=== PATIENT | male | born 1980 | race Caucasian/White ===

== ENCOUNTER 2016-11-02 06:19 | Day surgery (SDC) | payer MEDICAID ==
[2016-11-01 15:25] LABS: BASOPHILS 0.1 % (0.0-2.0); EOSINOPHILS 0.4 % (0-7); HEMATOCRIT 28.7 % (42.0-54.0); HEMOGLOBIN 10.6 g/dL (13.5-17.5); IMMATURE GRANULOCYTES 2.3 % (0-5); LYMPHOCYTES 6.5 % (15-50); MCH 35.1 pg (26.0-34.0); MCHC 36.9 g/dL (31.0-37.0); MEAN PLATELET VOLUME 9.6 fL (7.4-10.4); MONOCYTES 3.3 % (2-11); NEUTROPHILS 87.4 % (40-80); PLATELET COUNT 183 10x3/uL (130-400); RBC 3.02 10x6/uL (4.20-6.10); RDW 15.3 % (11.5-14.5); WBC 12.1 10x3/uL (4.8-10.8)
[2016-11-01 16:20] LABS: ANION GAP 15.4 mmol/L (8-16); CALCIUM 9.1 mg/dL (8.5-10.1); CARBON DIOXIDE 25.4 mmol/L (21.0-32.0); CREATININE - SERUM 4.2 mg/dL (0.6-1.3); POTASSIUM - SERUM 3.8 mmol/L (3.5-5.1)
[~2016-11-02] VITALS: Ht 182.9 cm; Wt 117.9 kg
[~2016-11-02 06:19] MED LIST: ALDACTONE50 MG PO; CARDURA2 MG PO; CATAPRES0.1 MG PO; CELLCEPT500 MG PO; CLARITIN 10 MG10 MG PO; COUMADIN7.5 MG PO; CYCLOPHOSPHAMIDE PO; DEMADEX20 MG PO; HYDROCODON-ACE1 EAC7 PO; K-TAB10 MEQ PO; KLONOPIN1 MG PO; LASIX40 MG PO; LIPITOR80 MG PO; NORVASC10 MG PO; PLAVIX75 MG PO; PREDNISONE10 MG PO; PRILOSEC20 MG PO; SODIUM BICARBO650 MG PO; SYNTHROID200 MC1 PO; TOPROL XL100 MG PO; ULTRAM50 MG PO; XANAX0.5 MG PO; ZOFRAN8 MG PO; ZOLOFT100 MG PO
[2016-11-02 07:27] VITALS: BP 144/97; Ht 182.9 cm; Wt 117.9 kg
[2016-11-02] MEDS ORDERED: ULTRAM50 MG PO (10:38)
--- NOTE | 2016-11-02 11:48 | NUR ---
7995 PT REQUESTED PAIN MEDICATION, TORODOL PULLED, PT THEN DECLINED WHEN I WENT TO THE ROOM AND PT DISCOVERED IT WAS TORODOL AND NOT IV PAIN MEDICATION, STATES THAT IS WHAT I HAVE AT HOME AND IT DOES VERY LITTLE FOR ME AND I CAN WAIT.
--- NOTE | 2016-11-03 13:15 | OP ---
PATIENT NAME: DAYDAY LISA MEDICAL RECORD: [id number] :81 LOCATION:D.OPS ADMISSION DATE: SURGEON: STEVENSON ROGEL MD DATE OF OPERATION: 11/02/2016 REFERRED BY: Dr. Ryan Osborn. PRIMARY CARE PHYSICIAN: Jorgito Gauthier MD of [place]. 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 OPERATION PERFORMED: Creation of a left wrist radiocephalic arteriovenous fistula. SURGEON: Stevenson Rogel MD ANESTHESIA: General with LMA per BUSINESS ANALYSIS SPECIALIST. PREOPERATIVE NOTE: Mr. Lisa is a 36-year-old white male patient with lupus and severe chronic kidney disease, it is believed he will require dialysis within a few months and Dr. Ryan Osborn referred him to me for creation of a dialysis access. His mapping venous study demonstrated small veins and it is thought that he may be a candidate only for a brachiobasilic fistula. He is brought to the operating room at this time with plans to try to create a fistula in the left upper extremity as he is right handed, though I may possibly or will consider placement of a forearm loop graft that the situation allows. With the patient under anesthesia in supine position, he was prepped and draped in sterile manner. The left arm was treated with topical nitroglycerin paste and a Edgar drain used as a proximal venous tourniquet. Examination with high resolution B mode ultrasound demonstrated a satisfactory cephalic and median antebrachial veins in the forearm and at the wrist. The radial artery was a little small, about 3 mm in diameter, but did not appear to be calcified. The brachial artery was large. There is a good median cubital vein, actually two, one to the cephalic vein and one to the basilic. The basilic vein in the upper arm is larger venous drainage, although the cephalic vein in the upper arm was larger than I anticipated. I think that in the future the patient would be a potential suitable candidate for a forearm loop AV graft and also for brachial translocated basilic vein AV fistula and possibly even brachiocephalic. Today, I went ahead with a wrist fistula. I made an incision on the radial aspect of the wrist and exposed the cephalic vein and treated it with topical papaverine. Tributaries were divided between Vicryl ties and small Hemoclips. The radial artery was exposed and it was as expected somewhat small. It was controlled with Silastic loops and treated with topical papaverine. The vein was transected and beveled and flushed with heparinized saline, treated with additional papaverine. The artery was occluded and opened. It was flushed proximally and distally with heparinized saline and a [id number] end-to-side anastomosis was then performed with running 7-0 Prolene and after the suture line was completed that was hemostatic and with release of the occluding loops and clamps, excellent flow was established in the OPERATIVE REPORT [id number] DAYDAY LISA new fistula. The artery had been dilated with coronary artery dilators up to 3 mm in diameter with ease and I believe that the artery is large enough to carry flow to support and maintain this fistula. There was preservation of flow into the hand via the ulnar artery. Flow reversal in the distal radial artery was noted. The wound was irrigated with Ancef and gentamicin solution, infiltrated with 0.25% Marcaine with epinephrine and closed with interrupted inverted 3-0 Vicryl and then running intracuticular 4-0 Monocryl and Dermabond glue. The incision was dressed with Maxorb Ag, Tegaderm and Cavilon skin prep and the patient awakened from his anesthetic and was taken to the recovery room. Blood loss during the operation was insignificant and unreplaced and all sponges, instruments, and needles were accounted for. No specimen was sent for histopathology. Blood loss was unreplaced and trivial. Plan for Mr. Lisa to go home today. He will come back to see me in my office tomorrow or probably next week. He can leave the original operative dressing intact until then. He can wash over with soap and water as it is quite waterproof. He will continue his home medications and was given an additional prescription for tramadol 50 mg #30 tablet, he can take 1 or if needed 2 p.o. q.4 hours p.r.n. pain. He will continue all his other home medications and renal diet at home. TRANSINT:[id number] Voice Confirmation ID: [id number] DOCUMENT ID: [id number] STEVENSON ROGEL MD at 1315 CC: JORGITO GAUTHIER MD and RENATO OSBORN MD [id number] DICTATION DATE: 11/02/16 1052 RETAIL BUSINESS DEVELOPMENT MANAGER: 11/02/16 1652 [facility] 11/02/16 [id number] [place] [address]
== END 2016-11-02 12:35 | disposition home or self-care (01) ==
LOC: D.OPS 06:19 → D.PAN 08:00 → D.OPS 08:00
PROVIDERS: Surgery
DX: M32.14 Glomerular disease in systemic lupus erythematosus (principal); I12.0 Hypertensive chronic kidney disease with stage 5 chronic kidney disease or end stage renal disease; N18.5 Chronic kidney disease, stage 5

== ENCOUNTER 2017-01-01 16:47 | Inpatient (IN) | payer MEDICAID ==
[~2017-01-01] VITALS: Ht 182.9 cm; Wt 112.7 kg
--- NOTE | ~2017-01-01 | DS ---
PATIENT:DAYDAY LISA :82 MEDICAL RECORD: [id number] DISCHARGE SUMMARY ADMISSION DATE: 01/01/17 DISCHARGE DATE: 01/04/17 REASON FOR ADMISSION: 1. Hypercalcemia. 2. Shortness of breath, which has resolved. 3. Chest pain, which has resolved. 4. Nausea and vomiting, which has resolved. HISTORY OF PRESENT ILLNESS: This 36-year-old gentleman with lupus nephritis, followed by Dr. Osborn. He has not been seeing his lupus doctors either. He presented with about 6 days of not feeling well with shortness of breath, dyspnea on exertion, inability to hold down foods, some dyspepsia and loose stools. It was discovered that his calcium was 14.4. He has been ready to go home for the past 2 days, was a little concerned about shortness of breath and was going to perform a VQ scan today; however, indicated he does not have any further dyspnea on exertion and had a negative venous Doppler. His potassium was a little low, but we started Urocit-K 20 mEq 3 times a day and he is going to consume potassium today and have lab work with Dr. Osborn tomorrow. BUN is 37; creatinine 4.8, this is above his baseline of around 3.5; however, he does have bilateral kidney stones. On discharge, he is 138/87, 77 pulse. He is alert and oriented times 3. Normocephalic and atraumatic. Clear nares. Clear throat. No JVD or thyromegaly. He is up and walking in his room. Clear lungs. Chest is regular rhythm. No clubbing, cyanosis or edema. No urticarial rash. H&H was 9.4/26 with a white count of 6400 and platelet count of 157. He is likely going to need erythropoietin. Potassium is 3.2. As I mentioned, creatinine 4.8, CO2 was 22, albumin 2.4, alkaline phosphatase 36. Echocardiogram as noted, CT of the abdomen and pelvis. C. diff cultures are negative as well. Urine culture is still pending, but did have positive guaiac stool and he is on Plavix. DISPOSITION: Discharge to home. MEDICATIONS: New medications are Sensipar 60 mg once a day, Urocit-K 20 mEq 3 times a day and Bactrim-DS 1 a day for 5 days. He is to follow up with Dr. Osborn for which I wrote him a detail of note, renal diet. Stable on discharge, to return for any problems. I did clarify that he has been ready to go home. We did have a positive guaiac, anemia that we have to deal with as well as followup of his lupus nephritis and hypercalcemia workup as his PTH and other labs are still pending. TRANSINT:[id number] Voice Confirmation ID: [id number] DOCUMENT ID: [id number] KATELYNN WILSON MD CC: [id number] DICTATION DATE: 01/04/17815 SOFTWARE DEVELOPMENT ADVISOR: 01/05/17 0051 DIS IN 01/04/17 [facility] [address] [place] [address]
--- NOTE | ~2017-01-01 | EC ---
PATIENT:DAYDAY LISA DATE OF SERVICE: 01/01/17 SEX: M MEDICAL RECORD: [id number] DATE OF : [birth year] LOCATION:D.M2 D.210 AGE OF PATIENT: 36 ADMISSION DATE: 01/01/17 REFERRING PHYSICIAN: INTERPRETING PHYSICIAN: ELIF GELLER MD ECHOCARDIOGRAM REPORT ECHO CHARGES 4 ECHO COMPLETE CLINICAL DIAGNOSIS: SOB/HTN ECHOCARDIOGRAPHIC MEASUREMENTS (adult normal given) AC root (d.<3.7cm) 3.4 LV Septum d (<1.2 cm> 1.5 Valve Excursion 2.5 LV Septum (systole) 2.4 Left Atria (s.<4.0cm> 4.3 LVPW d(<1.2cm) 1.5 RV (d.<2.3cm) 2.9 LVPW (sytole) 2.5 LV diastole(<5.6CM) 6.2 MV E-F(>70mm/sec) LV systole 3.3 LVOT Diameter 2.1 MV exc.(>10mm) Est.ejection fraction (50-75%) Pericardial Effusion N DOPPLER: LVIT A 82.0 E 54.0 LA RVSP 33.0 LVOT 131 AOP1/2T Asc. Ao 187 RVOT 74.0 RA PA 123 AV Gradient Peak 14.0 AV Mean 5.8 AV Area 2.5 MV Gradient Peak 3.1 MV Mean 1.2 MV Area COMMENTS: Motor Pool Clerk: William WILCOXOE Payroll Consultant:1 Dr. Geller TAPE# PACS DATE OF SERVICE: 01/02/2017 Echocardiogram FINDINGS: 1. Left ventricle chamber size is within normal limits. Left ventricular systolic function is normal. Overall ejection fraction estimated at 60%. 2. Left atrium is enlarged at 4.3 cm. Right atrium and right ventricle chamber sizes are as well mildly dilated. 3. Valvular structures have normal structure and motion. ECHOCARDIOGRAM REPORT [id number] DAYDAY LISA 4. Doppler interrogation reveals mild to moderate aortic insufficiency, mild mitral regurgitation, mild tricuspid regurgitation, no other valvular insufficiency or stenosis. Pulmonary systolic pressure is normal estimated at 33 mmHg. 5. No evidence of pericardial effusion or left ventricular thrombus. TRANSINT:[id number] Voice Confirmation ID: [id number] DOCUMENT ID: [id number] ELIF GELLER MD CC: [id number] DICTATION DATE: 01/03/17 1138 INSTRUMENTATION CONTROLS ENGINEER: 01/03/17 1630 ADM IN [facility] [address] [facility], [facility]901
[2017-01-01 17:40] LABS: BASOPHILS 0.1 % (0-2); EOSINOPHILS 0.1 % (0-7); HEMATOCRIT 33.9 % (42.0-54.0); HEMOGLOBIN 12.6 g/dL (13.5-17.5); IMMATURE GRANULOCYTES 0.6 % (0-5); MCH 34.7 pg (26.0-34.0); MCHC 37.2 g/dL (31.0-37.0); MCV 93.4 fL (80.0-100.0); MEAN PLATELET VOLUME 10.3 fL (7.4-10.4); MONOCYTES 2.6 % (2-11); NEUTROPHILS 90.6 % (40-80); RBC 3.63 10x6/uL (4.20-6.10); RDW 13.4 % (11.5-14.5); WBC 9.4 10x3/uL (4.8-10.8)
[2017-01-01 17:41] LABS: PLATELET COUNT 221 10x3/uL (130-400)
[2017-01-01 17:51] LABS: ALBUMIN 3.3 g/dL (3.4-5.0); ANION GAP 18.1 mmol/L (8-16); BILIRUBIN - TOTAL 0.49 mg/dL (0.2-1.3); CARBON DIOXIDE 23.1 mmol/L (21.0-32.0); CREATININE - SERUM 5.4 mg/dL (0.6-1.3); POTASSIUM - SERUM 4.2 mmol/L (3.5-5.1)
[2017-01-01 17:57] LABS: CALCIUM 14.4 mg/dL (8.5-10.1)
[2017-01-01 18:12] LABS: APPEARANCE HAZY (CLEAR); BILIRUBIN NEGATIVE (NEGATIVE); COLOR YELLOW (YELLOW); GLUCOSE NEGATIVE (NEGATIVE); KETONE NEGATIVE (NEGATIVE); LEUKOCYTE ESTERASE NEGATIVE (NEGATIVE); NITRITE NEGATIVE (NEGATIVE); PROTEIN 3+ mg/dL (NEGATIVE); SPECIFIC GRAVITY 1.015 (1.005-1.020); UROBILINOGEN NORMAL (NORMAL)
[2017-01-01 18:17] LABS: BACTERIA MODERATE /hpf (NONE SEEN); EPITHELIAL CELLS 0-5 /hpf (0-5); GRANULAR CAST 0-5 /lpf (NONE SEEN); HYALINE CAST 0-5 /lpf (NONE SEEN); RED CELLS - URINE 0-5 /hpf (0-5); WAXY CAST OCC /lpf (NONE SEEN)
[2017-01-01 18:19] LABS: AMYLASE - SERUM 53 U/L (25-115); LIPASE 154 U/L (73-393)
--- NOTE | 2017-01-01 20:27 | NUR ---
RECIEVED TO ROOM 2104 FROM ER VIA WC. PT A&O. RESPERATIONS EVEN ON ROOM AIR. IV TO RIGHT HAND WITH NS INFUSING AT 100 CC/HR, SITE CLEAN AND DRY. LEFT WRIST AV FISTULA NOTED, RESERVE LEFT ARM SIGNS PLACED ON OUT SIDE OF DOOR AND ABOVE BED. VITALS OBTAINED, PT DENIES PAIN OR NEEDS.
--- NOTE | 2017-01-01 20:29 | NUR ---
RECEIVED CALL FROM CHAD GAMINO APN ENGLISH DRAWER. NEW ORDERS RECEIVED TO ENACT UPON PT'S ARRIVAL. ENTERED INTO CPOE AND NURSE STAN LPN NOTIFIED OF NEW ORDERS.
[2017-01-01] MEDS ORDERED: DEMADEX20 MG PO (20:33)
[2017-01-01] MEDS ORDERED: NASONEX NASAL S17 GM NS (20:41)
[2017-01-01 21:00] VITALS: BP 161/97
--- NOTE | 2017-01-01 22:17 | NUR ---
HS MEDS GIVEN ORDERED. PT DENIES PAIN OR NEEDS AT THIS TIME.
[2017-01-01 23:38] VITALS: BP 201/123; BMI 33.7
[2017-01-02 04:00] VITALS: BP 152/88
[2017-01-02 05:29] LABS: BASOPHILS 0.1 % (0-2); EOSINOPHILS 0.3 % (0-7); HEMATOCRIT 30.6 % (42.0-54.0); HEMOGLOBIN 11.2 g/dL (13.5-17.5); IMMATURE GRANULOCYTES 0.7 % (0-5); LYMPHOCYTES 7.3 % (15-50); MCH 34.8 pg (26.0-34.0); MCHC 36.6 g/dL (31.0-37.0); MEAN PLATELET VOLUME 10.2 fL (7.4-10.4); MONOCYTES 4.7 % (2-11); NEUTROPHILS 86.9 % (40-80); PLATELET COUNT 194 10x3/uL (130-400); RBC 3.22 10x6/uL (4.20-6.10); RDW 13.6 % (11.5-14.5); WBC 10.4 10x3/uL (4.8-10.8)
[2017-01-02 05:46] LABS: ANION GAP 19.9 mmol/L (8-16); CALCIUM 11.9 mg/dL (8.5-10.1); CARBON DIOXIDE 19.7 mmol/L (21.0-32.0); CREATININE - SERUM 5.2 mg/dL (0.6-1.3); POTASSIUM - SERUM 3.6 mmol/L (3.5-5.1)
[2017-01-02 08:00] VITALS: BP 163/91
--- NOTE | 2017-01-02 10:20 | NUR ---
IV PATENT. CALL LIGHT IN REACH. WILL MONITOR NEEDS.
--- NOTE | 2017-01-02 10:32 | HP ---
PATIENT: DAYDAY LISA MEDICAL RECORD: [id number] ACCOUNT: [id number] LOCATION:D. D.2105 : 81 ADMISSION DATE: 01/01/17 HISTORY AND PHYSICAL EXAMINATION REASON FOR ADMISSION: 1. Intractable nausea and vomiting. 2. Acute kidney injury on chronic kidney disease. 3. Intravascular volume depletion. 4. Proteinuria. 5. Hypercalcemia with a calcium of 14.4. HISTORY OF PRESENT ILLNESS: This is a 36-year-old gentleman followed by Dr. Ryan Osborn who presented to the Emergency Room with not feeling well for 6 days with off and on nausea and vomiting. His calcium was 4.4 and albumin 3.3. PAST MEDICAL HISTORY: 1. CKD due to lupus. 2. Hypercalcemia. 3. Incomplete database as we are obtaining his medications from home. PAST SURGICAL HISTORY: Renal biopsy. ALLERGIES: NSAIDS. SOCIAL HISTORY: No tobacco, alcohol or illicit drugs. FAMILY HISTORY: Noncontributory for lupus nephritis in his mother and father. He is unaware of heart disease or malignancy. PHYSICAL EXAMINATION: VITAL SIGNS: He is 165/86, 71 pulse, 97.8 temperature. GENERAL: Alert and oriented times 3. HEENT: Normocephalic and atraumatic. Clear nares. Clear throat. NECK: No JVD or thyromegaly. CHEST: Regular rhythm. LUNGS: Grossly clear. ABDOMEN: Nontender in all 4 quadrants. Negative Babinski. SKIN: No urticarial rash. LABORATORY DATA: H&H is 12.6/33 with a white count of 9400. Sodium of 138, BUN 43, creatinine 5.4, calcium 14.4. Specific gravity of his urine is 1.015, 5-10 white blood cells, moderate bacteria. ASSESSMENT AND PLAN: 1. Acute kidney injury with hypercalcemia. We will determine his medications. Begin normal saline, increase the rate and consider IV Lasix. We will start Sensipar if his nausea and vomiting improves. 2. Lupus nephritis. He is on medication that will need to obtain from the office for nephrotic syndrome. 3. Deep venous thrombosis risk. We will need to place on Lovenox. I have asked him to ambulate. 4. Hypercalcemia. We will determine the etiology. He may be taking vitamin D at home oral and even calcium supplements or phosphorus. We will follow his lab work. HISTORY AND PHYSICAL [id number] DAYDAY LISA 5. Incomplete database as we need his medications. 6. Hypertension. PLAN: Please see orders. TRANSINT:[id number] Voice Confirmation ID: [id number] DOCUMENT ID: [id number] KATELYNN WILSON MD at 1032 CC: [id number] DICTATION DATE: 01/01/171912 FIELD HAND: 01/01/178 ADM IN [facility] [address] [id number]
[2017-01-02 11:02] LABS: AMYLASE - SERUM 48 U/L (25-115); CKMB 0.4 U/L (0.0-3.6); CREATINE KINASE 18 UL (21-232); LIPASE 257 U/L (73-393); TROPONIN-I 0.033 ng/mL (0.000-0.060)
[2017-01-02 11:45] VITALS: BP 193/109
--- NOTE | 2017-01-02 13:36 | NUR ---
URINE SPECIMEN CLLECTED AND TAKEN TO LAB FOR CULTURE. WILL MONITOR.
--- NOTE | 2017-01-02 15:12 | NUR ---
LEAVING FOR CT BY W/C.
--- NOTE | 2017-01-02 19:49 | NUR ---
ASSESSMENT COMPLETE, A&O, IN BED RESTING, IV TO RIGHT HAND WITH NS AT 100 CC/HR. SITE CLEAN AND DRY. PT DENIES PAIN OR NEEDS, BED LOW, CL IN REACH.
--- NOTE | 2017-01-02 21:15 | NUR ---
HS MEDS GIVEN, ZOFRAN 4 MG GIVEN FOR C/O NAUSEA.
[2017-01-02 21:30] VITALS: BP 147/89
[2017-01-03 00:55] VITALS: BP 135/70
--- NOTE | 2017-01-03 04:36 | NUR ---
CALLED TO ROOM, PT ASKING TO TAKE A SHOWER. IV DISCONNECTED AND COVERED.
[2017-01-03 05:40] LABS: BASOPHILS 0.2 % (0-2); EOSINOPHILS 0.2 % (0-7); HEMATOCRIT 29.3 % (42.0-54.0); HEMOGLOBIN 10.4 g/dL (13.5-17.5); IMMATURE GRANULOCYTES 1.1 % (0-5); LYMPHOCYTES 5.6 % (15-50); MCH 34.1 pg (26.0-34.0); MCHC 35.5 g/dL (31.0-37.0); MCV 96.1 fL (80.0-100.0); MEAN PLATELET VOLUME 10.7 fL (7.4-10.4); MONOCYTES 3.4 % (2-11); NEUTROPHILS 89.5 % (40-80); PLATELET COUNT 180 10x3/uL (130-400); RBC 3.05 10x6/uL (4.20-6.10); RDW 13.4 % (11.5-14.5)
[2017-01-03 05:43] LABS: WBC 6.1 10x3/uL (4.8-10.8)
[2017-01-03 05:55] VITALS: BP 151/93
[2017-01-03 06:03] LABS: ALBUMIN 2.7 g/dL (3.4-5.0); ANION GAP 11.7 mmol/L (8-16); BILIRUBIN - TOTAL 0.4 mg/dL (0.2-1.3); CALCIUM 10.1 mg/dL (8.5-10.1); CARBON DIOXIDE 18.5 mmol/L (21.0-32.0); CREATININE - SERUM 4.7 mg/dL (0.6-1.3); MAGNESIUM - SERUM 1.4 mg/dL (1.8-2.4); PHOSPHOROUS 4.7 mg/dL (2.5-4.9); POTASSIUM - SERUM 3.2 mmol/L (3.5-5.1); PROTEIN - SERUM 5.5 g/dL (6.4-8.2)
--- NOTE | 2017-01-03 07:23 | NUR ---
AM ROUNDS- PT IN BED, DENIES ANY NEEDS AT THIS TIME. BED LOW AND LOCKED, BEDSIDE RAILS X2, CALL LIGHT IN REACH, NAD NOTED, WILL CONTINUE TO MONITOR.
[2017-01-03 08:21] VITALS: BP 149/83
[2017-01-03 10:47] VITALS: Ht 182.9 cm; Wt 112.7 kg
[2017-01-03 11:46] VITALS: BP 149/92
--- NOTE | 2017-01-03 13:31 | NUR ---
PT IN BED, WITH EYES CLOSED, NAD NOTED, CALL LIGHT IN REACH, NAD NOTED, WILL CONTIUE TO MONITOR.
[2017-01-03 16:00] VITALS: BP 152/89; BP 90/50
[2017-01-03 20:16] VITALS: BP 135/85
[2017-01-04 00:15] VITALS: BP 138/87
--- NOTE | 2017-01-04 01:03 | NUR ---
NURSE ROUNDS 01/03/17 21:45 - PT LYING IN BED, AWAKE, ALERT, ORIENTED, VISITORS IN ROOM. PT STATED HE HAS HAD TRANSIENT NAUSEA AND REQUESTED ZOFRAN, HOWEVER, IV INFILTRATED IMMEDIATELY UPON BEGINNING TO PUSH. IV REMOVED WITH CATH TIP INTACT. WILL RESITE. PT STATES HE IS A VERY DIFFICULT IV STICK, AND HAS ORDERS FOR A CVL. CONTINUE TO MONITOR CLOSELY.
--- NOTE | 2017-01-04 02:32 | NUR ---
VEDA NICOLE RESITED PTS IV TO INNER RIGHT FOREARM.
[2017-01-04 02:39] LABS: BASOPHILS 0.2 % (0-2); EOSINOPHILS 0.6 % (0-7); HEMOGLOBIN 9.4 g/dL (13.5-17.5); IMMATURE GRANULOCYTES 1.4 % (0-5); LYMPHOCYTES 7.5 % (15-50); MCH 34.7 pg (26.0-34.0); MCHC 36.2 g/dL (31.0-37.0); MCV 95.9 fL (80.0-100.0); MEAN PLATELET VOLUME 10.3 fL (7.4-10.4); MONOCYTES 4.5 % (2-11); NEUTROPHILS 85.8 % (40-80); PLATELET COUNT 157 10x3/uL (130-400); RBC 2.71 10x6/uL (4.20-6.10); RDW 13.6 % (11.5-14.5); WBC 6.4 10x3/uL (4.8-10.8)
[2017-01-04 02:53] LABS: ALBUMIN 2.4 g/dL (3.4-5.0); ANION GAP 14.1 mmol/L (8-16); BILIRUBIN - TOTAL 0.24 mg/dL (0.2-1.3); CALCIUM 9.3 mg/dL (8.5-10.1); CARBON DIOXIDE 22.1 mmol/L (21.0-32.0); CREATININE - SERUM 4.8 mg/dL (0.6-1.3); POTASSIUM - SERUM 3.2 mmol/L (3.5-5.1); PROTEIN - SERUM 4.9 g/dL (6.4-8.2)
[2017-01-04 05:15] VITALS: BP 143/83
--- NOTE | 2017-01-04 07:48 | NUR ---
AM ROUNDING- RECEIVED REPORT FROM GENERAL ROAD PRODUCTION MANAGER NURSE YANIQUE. PT IS CURRENTLY LAYING IN BED ON RIGHT SIDE WITH EYES CLOSED RESTING. RESERVE LEFT ARM FOR AVF (PER REPORT DOES NOT CURRENTLY WORK). ON ROOM AIR. NO MONITOR. IV SEEN TO RIGHT FOREARM THAT IS CURRENTLY SALINE LOCKED. NO NEED AT CURRENT TIME. WILL CONTINUE TO MONITOR AND CONTINUE WITH PLAN OF CARE.
[2017-01-04 07:57] VITALS: BP 158/99
[2017-01-04] MEDS ORDERED: BACTRIM DS TABL1 TAB PO (08:10)
[2017-01-04] MEDS ORDERED: SENSIPAR30 MG PO (08:11)
[2017-01-04] MEDS ORDERED: UROCIT-K10 MEQ PO (08:12)
--- NOTE | 2017-01-04 09:25 | NUR ---
Patient Name: DAYDAY LISA Admission Status: ER Accout number: [id number] Admission Date: 01-01-2017 : 1980 Admission Diagnosis: Attending: DOONVAN Current LOS: 3 Anticipated DC Date: 01-04-2017 Planned Disposition: Home Primary Insurance: MEDICAID [place] Discharge Planning Comments: * Is the patient Alert and Oriented? Yes 0 * How many steps to enter\exit or inside your home? NONE 0 * PCP DR. DEL RIO, [place] 0 OR - ED [facility]ALLO * Pharmacy [facility] IN [place] 0 * Preadmission Environment Home with Family 0 * ADLs Independent 0 * Equipment Walker 0 * Other Equipment NO MEDICAL EQUIPMENT PROVIDER PREFERENCE 0 * List name and contact numbers for known caregivers / representatives who currently or will assist patient after discharge: JAMILAH LISA, SPOUSE, 0 * Community resources currently utilized None 0 * Please name any agencies selected above. NONE 0 * Additional services required to return to the preadmission environment? No 0 * Can the patient safely return to the preadmission environment? Yes 0 * Has this patient been hospitalized within the prior 30 days at any hospital? No 0 CM MET WITH PT IN ROOM TO DISCUSS DISCHARGE PLANNING AND NEEDS. PT REPORTS LIVING AT HOME INDEPENDENTLY WITH SPOUSE. PT HAS WALKER THAT HE DOES NOT USE AND NO MEDICAL EQUIPMENT PROVIDER PREFERENCE. PT HAS NO OUTSIDE SERVICES ASSISTING IN THE HOME. CM DISCUSSED AVAILABILITY OF HOME HEALTH, REHAB SERVICES AND MEDICAL EQUIPMENT. PT DENIES DISCHARGE NEEDS, REPORTS HIS WILL PICK HIM UP FOR DISCHARGE HOME TODAY. Sound Engineering Technician: Leroy Liz
[2017-01-04] MEDS ORDERED: PROTONIX40 MG PO (09:29)
--- NOTE | 2017-01-04 11:22 | NUR ---
PT ADVISED HIS PHARMACY HAS CHANGED TO [facility]. NEW DISCHARGE MEDICATIONS CALLED TO [facility]. SPOKE WITH BETZY/PHARMACIST.
--- NOTE | 2017-01-04 11:52 | NUR ---
D/C INSTRUCTIONS EXPLAINED TO PT. D/C PAPERWORK SIGNED BY PT AND PLACED IN CHART. PER PT REQUEST IV IS BEING LEFT IN TO RIGHT FOREARM (WITH DR. WILSON APPROVAL) BECAUSE PT IS GOING TO DIALYSIS CENTER TOMORROW AND WANTS TO LEAVE IT IN FOR THEM TO DRAW BLOOD OUT OF. AWAITING PTS TO TAKE HIM HOME. WILL D/C PT WHEN GETS HERE. WILL CONTINUE TO MONITOR.
--- NOTE | 2017-01-04 13:13 | NUR ---
1244- PT D/C VIA WHEELCHAIR.
== END 2017-01-04 13:13 | disposition home or self-care (01) | DRG 641 ==
LOC: D.ER 16:47 → D.M2 19:28
PROVIDERS: Emergency Medicine; Nurse Practitioner Acute Care; ADMIT Internal Medicine Nephrology
DX: E83.52 Hypercalcemia (principal); N18.4 Chronic kidney disease, stage 4 (severe); N17.9 Acute kidney failure, unspecified; M32.14 Glomerular disease in systemic lupus erythematosus; I12.9 Hypertensive chronic kidney disease with stage 1 through stage 4 chronic kidney disease, or unspecified chronic kidney disease; E86.9 Volume depletion, unspecified; D64.9 Anemia, unspecified

== ENCOUNTER 2017-02-04 05:59 | Day surgery (SDC) | payer MEDICAID ==
[2017-02-03 15:26] LABS: BASOPHILS 0.1 % (0-2); EOSINOPHILS 0.3 % (0-7); HEMATOCRIT 30.6 % (42.0-54.0); HEMOGLOBIN 10.7 g/dL (13.5-17.5); IMMATURE GRANULOCYTES 1.2 % (0-5); LYMPHOCYTES 4.3 % (15-50); MCH 34.5 pg (26.0-34.0); MCV 98.7 fL (80.0-100.0); MEAN PLATELET VOLUME 9.7 fL (7.4-10.4); MONOCYTES 2.2 % (2-11); NEUTROPHILS 91.9 % (40-80); PLATELET COUNT 141 10x3/uL (130-400); RDW 14.5 % (11.5-14.5); WBC 9.9 10x3/uL (4.8-10.8)
[2017-02-03 15:32] LABS: APTT 26.6 SECONDS (22.8-39.4); INR 0.99 (0.85-1.17); PROTIME 12.9 SECONDS (11.6-15.0)
[2017-02-03 15:34] LABS: ANION GAP 17.4 mmol/L (8-16); CALCIUM 9.8 mg/dL (8.5-10.1); CARBON DIOXIDE 20.8 mmol/L (21.0-32.0); CREATININE - SERUM 3.8 mg/dL (0.6-1.3); POTASSIUM - SERUM 5.2 mmol/L (3.5-5.1)
[~2017-02-04] VITALS: Ht 182.9 cm; Wt 113.4 kg
[~2017-02-04 05:59] MED LIST changes: +AMOXICILLIN500 M1 PO; +BACTRIM DS TABL1 TAB PO; +NASONEX NASAL S17 GM NS; +NORCO 7.5/325 T1 TA1 PO; +PROTONIX40 MG PO; +SENSIPAR30 MG PO; +UROCIT-K10 MEQ PO
[2017-02-04 07:21] VITALS: BP 178/91; Ht 182.9 cm; Wt 113.4 kg
[2017-02-04] MEDS ORDERED: HYDROCODON-ACE1 EAC7 PO (11:37)
--- NOTE | 2017-02-04 15:38 | NUR ---
2018--PT COMPLAINS OF PAIN, RATES PAIN 01/24. HYDROCODONE 5/325MG GIVEN PO FOR PAIN. LEEANN NICOLE 1519--IV DC'D, PT UP TO DRESS. LEEANN NICOLE 9120--DISCHARGE INSTRUCTIONS GIVEN, PT VERBALIZES UNDERSTANDING. PT OFF UNIT VIA WC. LEEANN NICOLE
--- NOTE | 2017-02-04 15:46 | NUR ---
1215--IV DC'D, PT UP TO DRESS AT THIS TIME. LEEANN NICOLE 1230--DISCHARGE INSTRUCTIONS GIVEN, PT VERBALIZES UNDERSTANDING. PT OFF UNIT VIA WC. LEEANN NICOLE
--- NOTE | 2017-02-08 11:09 | OP ---
PATIENT NAME: DAYDAY LISA MEDICAL RECORD: [id number] :82 LOCATION:IRVING ADMISSION DATE: SURGEON: STEVENSON ROGEL MD OPERATION DATE: 02/04/17 DATE OF OPERATION: 02/04/2017 PREOPERATIVE DIAGNOSIS: Chronic kidney disease stage V and systemic lupus erythematosus with renal involvement. POSTOPERATIVE DIAGNOSIS: Chronic kidney disease stage V and systemic lupus erythematosus with renal involvement. OPERATION PERFORMED: Implantation of a left forearm loop PTFE graft between the medial brachial artery and the slightly more lateral median cubital vein, which drains essentially completely to the basilic vein. The graft is a 6 mm diameter straight standard wall thickness [place] Propaten PTFE. SURGEON: Stevenson Rgoel MD ANESTHESIA: Regional nerve block plus general endotracheal anesthesia per REGLA and Dr. Durand. PREOPERATIVE NOTE: Mr. Lisa is a 36-year-old white male patient with lupus and near end-stage renal disease. He needs to begin dialysis fairly soon. He had a left wrist radiocephalic AV fistula established several months ago and it functioned for a couple of months and then recently thrombosed. Hopefully, that fistula has provided some development of the proximal veins. Under anesthesia, the patient was placed in supine position, prepped, draped in sterile manner. I used a Silver Plume drain as a proximal venous tourniquet and applied nitropaste to the skin of the arm and forearm. I examined him with ultrasound and noted the brachial artery and median cubital vein to the excellent for use for forearm PTFE loop. The median cubital vein did not drain at all into the cephalic vein in the upper arm, but appears to drain 100% into the basilic cyst. So, I thought that doing a loop graft at this point was the best option as he really could not have a brachial cephalic fistula. The brachial artery bifurcated fairly proximally and the subsequent arterial anastomosis was made immediately proximal to that bifurcation. I made a transverse incision over the antecubital space or just below it and exposed the median cubital vein and the brachial artery and its bifurcation. The vessels were controlled with Silastic loops. I made a counter incision or reopened a portion of the prior wrist AV fistula incision for the counterincision and placed a 6 mm PTFE Propaten graft in a subcutaneous tunnel looping around the forearm and kept the grafts close to the skin as possible. The artery was opened for a distance for about 8 mm and the PTFE graft was shortened and beveled and then anastomosed end-to-side to the artery with running 6-0 Prolene after the artery was flushed proximally and distally with heparinized saline. With completion of the anastomosis, the suture line was hemostatic. It was treated with Evicel and some fibrillar hemostatic material utilized initially. The graft was then flushed again with heparinized saline and clamped and the vein treated repeatedly with topical papaverine was occluded with Silastic loops and a venotomy made and the graft shortened and beveled and about a 12-mm long end of graft to side of vein anastomosis was carried out with OPERATIVE REPORT [id number] MARIA LDAYDAY running 6-0 Prolene. With completion of the anastomosis and after approximately 60 seconds following application of Evicel, the occluding loops and clamps were released and excellent flow developed immediately in the new AV graft. The wounds were irrigated with Ancef/gentamicin solution and closed without the use of drain approximating the subcutaneous tissues with interrupted inverted 3-0 Vicryl and the skin with running intracuticular 4-0 Monocryl and Dermabond glue. The wounds were dressed with Maxorb Ag, Tegaderm and Cavilon skin prep. The patient will be able to go home from the outpatient department today. He was given a prescription for 20 Vista 5/325 tablets. He can take 1 every 4 hours p.r.n. for pain. He is encouraged to elevate his arm over the next several days to help reduce postoperative edema and an appointment scheduled for him see me in my office next week. He is to continue all of the same home medications and diet and resume activities as tolerated. He may wear his sling to support his arm for the first 24 hours or so or until the motor function returns in his arm as the block wears off. Otherwise, he will resume activities as I said and he is to shower and wash over the waterproof plastic dressings with soap and water daily. Blood loss was insignificant and replaced. All sponges, instruments and needles were accounted for. No drain was used and no surgical specimen was submitted for histopathology. TRANSINT:[id number] Voice Confirmation ID: [id number] DOCUMENT ID: [id number] STEVENSON ROGEL MD at 1109 CC: RENATO OLIVEIRA MD [id number] DICTATION DATE: 02/04/17 1153 GEOPHYSICAL SUPPORT SPECIALIST: 02/04/171909 [facility] 02/04/17 [facility] [address] [place] [address]
== END 2017-02-04 15:30 | disposition home or self-care (01) ==
LOC: D.OPS 05:59 → D.PAN 08:00 → D.OPS 15:30
PROVIDERS: Surgery
DX: N18.5 Chronic kidney disease, stage 5 (principal); M32.14 Glomerular disease in systemic lupus erythematosus; Z01.812 Encounter for preprocedural laboratory examination

== ENCOUNTER 2017-05-06 14:37 | Emergency (ER) | payer MEDICAID ==
[2017-02-04 07:21] VITALS: BMI 34.0
[2017-05-06 15:04] LABS: BASOPHILS 0.2 % (0-2); EOSINOPHILS 1.2 % (0-7); HEMATOCRIT 30.2 % (42.0-54.0); HEMOGLOBIN 11.2 g/dL (13.5-17.5); IMMATURE GRANULOCYTES 1.1 % (0-5); LYMPHOCYTES 3.6 % (15-50); MCH 35.6 pg (26.0-34.0); MCHC 37.1 g/dL (31.0-37.0); MCV 95.9 fL (80.0-100.0); MEAN PLATELET VOLUME 9.6 fL (7.4-10.4); MONOCYTES 6.1 % (2-11); NEUTROPHILS 87.8 % (40-80); RBC 3.15 10x6/uL (4.20-6.10); RDW 14.3 % (11.5-14.5); WBC 8.1 10x3/uL (4.8-10.8)
[2017-05-06 15:21] LABS: ALBUMIN 2.8 g/dL (3.4-5.0); ANION GAP 18.5 mmol/L (8-16); BILIRUBIN - TOTAL 0.6 mg/dL (0.2-1.3); CALCIUM 8.9 mg/dL (8.5-10.1); CREATININE - SERUM 5.4 mg/dL (0.6-1.3); POTASSIUM - SERUM 4.5 mmol/L (3.5-5.1); PROTEIN - SERUM 6.3 g/dL (6.4-8.2)
[2017-05-06 15:28] LABS: PLATELET COUNT 111 10x3/uL (130-400)
[2017-05-06 17:01] LABS: COLOR YELLOW (YELLOW)
[2017-05-06 17:02] LABS: APPEARANCE CLEAR (CLEAR); BILIRUBIN NEGATIVE (NEGATIVE); GLUCOSE NEGATIVE (NEGATIVE); KETONE NEGATIVE (NEGATIVE); NITRITE NEGATIVE (NEGATIVE); PROTEIN 1+ mg/dL (NEGATIVE); SPECIFIC GRAVITY 1.015 (1.005-1.020); UROBILINOGEN NORMAL (NORMAL)
== END 2017-05-06 17:42 | disposition home or self-care (01) ==
LOC: D.ER 14:37
PROVIDERS: Family Medicine
DX: E86.0 Dehydration (principal); R11.10 Vomiting, unspecified; N20.1 Calculus of ureter; I10 Essential (primary) hypertension; M32.9 Systemic lupus erythematosus, unspecified

== ENCOUNTER 2018-03-17 11:44 | Emergency (ER) | payer MEDICARE ==
[~2018-03-17] VITALS: Ht 182.9 cm; Wt 100.0 kg
[2018-03-17 11:48] VITALS: Ht 182.9 cm; Wt 100.0 kg
[2018-03-17] MEDS ORDERED: NEXIUM40 MG PO (11:53)
[2018-03-17] MEDS ORDERED: ASPIRIN EC81 M1 PO (11:53)
[2018-03-17] MEDS ORDERED: PHENERGAN25 M1 PO (11:53)
[2018-03-17 12:14] LABS: BASOPHILS 0.2 % (0-2); EOSINOPHILS 1.1 % (0-7); HEMATOCRIT 40.3 % (42.0-54.0); HEMOGLOBIN 14.3 g/dL (13.5-17.5); IMMATURE GRANULOCYTES 0.4 % (0-5); LYMPHOCYTES 10.2 % (15-50); MCH 32.9 pg (26.0-34.0); MCHC 35.5 g/dL (31.0-37.0); MCV 92.6 fL (80.0-100.0); MEAN PLATELET VOLUME 9.8 fL (7.4-10.4); MONOCYTES 2.5 % (2-11); NEUTROPHILS 85.6 % (40-80); RBC 4.35 10x6/uL (4.20-6.10); RDW 13.5 % (11.5-14.5); WBC 13.9 10x3/uL (4.8-10.8)
[2018-03-17 12:15] LABS: PLATELET COUNT 204 10x3/uL (130-400)
[2018-03-17 12:30] LABS: ALBUMIN 3.9 g/dL (3.4-5.0); ANION GAP 18.1 mmol/L (8-16); BILIRUBIN - TOTAL 0.38 mg/dL (0.2-1.3); CALCIUM 9.5 mg/dL (8.5-10.1); CARBON DIOXIDE 26.4 mmol/L (21.0-32.0); CREATININE - SERUM 7.4 mg/dL (0.6-1.3); POTASSIUM - SERUM 4.5 mmol/L (3.5-5.1); PROTEIN - SERUM 7.1 g/dL (6.4-8.2)
[2018-03-17 12:43] LABS: APPEARANCE CLEAR (CLEAR); BACTERIA FEW /hpf (NONE SEEN); BILIRUBIN NEGATIVE (NEGATIVE); COLOR YELLOW (YELLOW); EPITHELIAL CELLS 0-5 /hpf (0-5); GLUCOSE NEGATIVE (NEGATIVE); KETONE NEGATIVE (NEGATIVE); NITRITE NEGATIVE (NEGATIVE); PROTEIN 3+ mg/dL (NEGATIVE); UROBILINOGEN NORMAL (NORMAL); WHITE CELLS - URINE 0-5 /hpf (0-5)
[2018-03-17] MEDS ORDERED: HYDROCODON-ACE1 EAC7 PO (14:15)
[2018-03-17] MEDS ORDERED: FLOMAX0.4 MG PO (14:15)
[2018-03-17 14:43] VITALS: BP 141/90
== END 2018-03-17 15:13 | disposition home or self-care (01) ==
LOC: D.ER 11:44
PROVIDERS: Family Medicine
DX: N20.1 Calculus of ureter (principal); Z86.73 Personal history of transient ischemic attack (TIA), and cerebral infarction without residual deficits; G40.909 Epilepsy, unspecified, not intractable, without status epilepticus; I12.9 Hypertensive chronic kidney disease with stage 1 through stage 4 chronic kidney disease, or unspecified chronic kidney disease; N18.4 Chronic kidney disease, stage 4 (severe); Z99.2 Dependence on renal dialysis

== ENCOUNTER 2018-04-25 07:52 | Day surgery (SDC) | payer MEDICARE ==
[~2018-04-25] VITALS: Ht 182.9 cm; Wt 102.3 kg
--- NOTE | ~2018-04-25 | OP ---
PATIENT NAME: DAYDAY LISA MEDICAL RECORD: [id number] :82 LOCATION:D.OPS ADMISSION DATE: SURGEON: INDIA BARAHONA MD DATE OF OPERATION: 04/25/2018 PREOPERATIVE DIAGNOSES: 1. Malfunctioning arteriovenous graft fistula of the left upper extremity. 2. End-stage renal disease without chronic access for hemodialysis. 3. Functioning left arm arteriovenous fistula. POSTOPERATIVE DIAGNOSES: 1. Malfunctioning arteriovenous graft fistula of the left upper extremity. 2. End-stage renal disease without chronic access for hemodialysis. 3. Functioning left arm arteriovenous fistula. 4. Inability to recanalize the patient's left upper extremity arteriovenous fistulas. 5. Graft tissue that needed to be debrided in order to allow for placement of a new arteriovenous graft fistula. 6. Need for ligation of the functioning arteriovenous fistula, so that there would not be two arteriovenous fistulas functioning in the same upper extremity. PROCEDURES: 1. Placement of left upper extremity looped 8 mm ringed arteriovenous graft fistula from the brachial artery down the forearm and then back up all the way to the proximal brachial vein. 2. Ligation of the existing arteriovenous fistula of the left upper extremity. 3. Debridement of the existing graft material in the left upper extremity. SURGEON: India Barahona MD PROVIDER CONTRACTING CONSULTANT: None. BLOOD LOSS: Please see the anesthesia sheet. DRAINS: x1 (10-Estonian round fully fluted drain). The risks, possible complications and alternatives to the procedure were explained to the patient. He elects to proceed. The discussion specifically included, but was not limited to, bleeding requiring emergency reoperation, infection, need for additional dialysis access procedures. This is a former patient of Dr. Mack's. The patient has chosen to have another vascular surgeon attend his dialysis access needs. He is currently being dialyzed through a tunneled dialysis catheter. The patient had a thrill in the left upper extremity and there was an elevated area where the thrill was most easily felt. OPERATIVE COURSE: The patient was conveyed to the operating room electively on 04/25/2018. General anesthesia was induced by anesthesia staff. The left upper extremity was sterilely prepped and draped. It was abducted at 90 degrees to the patient's chart. I interrogated the left upper extremity with the hand-held ultrasound. I reviewed Dr. Mack's operative notes as well. It appeared that there were OPERATIVE REPORT [id number] DAYDAY LISA probably two looped AV graft fistulas. One appeared to be deeper than the other. I incised over some of the graft material, which was located transversely on the volar surface of the forearm. I dissected out the this graft material and it was encircled with a vessel loop. This appeared to be a 6 millimeter piece of PTFE. I then dissected medially over the area of the ulnar nerve. There was a plexus of veins that were contributing to an ongoing thrill that was present due to this arteriovenous fistula. I incised using a curvilinear-type incision and incised over this plexus of veins. I then began to tie off the plexus of veins with a suture ligature of 3-0 Vicryls. At no time was there any apparent nerve injury to the ulnar nerve. I had to oversew the bulged area primarily with [id number] 3-0 Vicryl sutures in order to obliterate the arteriovenous fistula. I noted no persistence of this fistula. There was some graft material, which was then making difficult to tunnel a graft and for this reason, it was necessary to excise this portion of the graft. Before excising it, I wanted to see if we can actually restore flow through this PTFE graft. I advanced a #4 Shravan catheter and attempted to perform a catheter thrombectomy. This was not fruitful. This approach was abandoned. I oversewed the lateral aspect of the graft with a 2-0 Prolene. I then excised the graft medial to this. I then continued my incision over the radial artery distally on the volar surface of the forearm and the wrist. I dissected down to the radial artery and it was diminutive and I identified it was not going to be suitable for an arteriovenous graft fistula. The patient on ultrasound did have a generous left brachial artery. An axial incision was accomplished over the brachial artery at the cubital fossa. I dissected down to the brachial artery. Some side branches were ligated doubly and divided between ligatures. The brachial artery was encircled with vessel loops proximally and distally. An incision was accomplished in the axilla and out on to the proximal medial left arm. I dissected down to the brachial vein, which was encircled with vessel loops. I then took some of the reinforcing rings off an 8 mm piece of PTFE graft. I sutured this graft in a side to end fashion from the brachial artery to the graft with running 6-0 Prolene suture. I then flushed out through the graft, which demonstrated good inflow. I tunneled the graft on the volar surface of the forearm from this cubital incision out on to the distal forearm and I tunneled this back laterally on to the forearm. Some of the reinforcing rings at the bend points in the graft. I then firmly tunneled this graft back to the incision in the axilla. I had removed some more of the reinforcing rings except at the bend at the elbow in the cubital fossa. An end-to-side graft to venous anastomosis was then accomplished after a longitudinal venotomy was performed. I then flushed out through the graft. There was an excellent thrill. Doppler signal could be heard in the radial artery and in the ulnar arteries at the wrist. Meticulous hemostasis was achieved with electrocautery. A 10-Estonian round drain was placed in the axillary incision along with a topical anesthetic power. The drain was sutured to skin with 2-0 nylons. All skin incisions were closed with OPERATIVE REPORT [id number] DAYDAY LISA interrupted 3-0 Vicryls for the deep dermis as well as running intracuticular 3-0 Vicryl for the skin. Sterile dressings were applied. The patient was then conveyed to post-anesthesia care unit where he was in stable condition. It was already evident that he was going to have some significant bruising from this operative procedure. There was an excellent thrill within the graft. No evidence of a radial or ulnar nerve injury. There was an excellent radial motor function at the wrist as well as sensory function on the dorsal surface of the webspace between the thumb and the index finger. There was excellent ulnar motor function as well as sensory function. TRANSINT:[id number] Voice Confirmation ID: [id number] DOCUMENT ID: [id number] INDIA BARAHONA MD at 1008 CC: KATELYNN WILSON MD [id number] DICTATION DATE: 04/25/182053 STEEL SASH ERECTOR: 04/26/18 0022 [facility] 04/26/18 [facility] [address] [place] [address]
[~2018-04-25 07:52] MED LIST changes: +ASPIRIN EC81 M1 PO; +FLOMAX0.4 MG PO; +NEXIUM40 MG PO; +PHENERGAN25 M1 PO
[2018-04-25 08:10] LABS: BASOPHILS 0.3 % (0-2); HEMATOCRIT 39.1 % (42.0-54.0); HEMOGLOBIN 13.7 g/dL (13.5-17.5); IMMATURE GRANULOCYTES 0.4 % (0-5); LYMPHOCYTES 5.3 % (15-50); MCH 32.7 pg (26.0-34.0); MCV 93.3 fL (80.0-100.0); MEAN PLATELET VOLUME 10.3 fL (7.4-10.4); MONOCYTES 8.2 % (2-11); NEUTROPHILS 84.8 % (40-80); PLATELET COUNT 192 10x3/uL (130-400); RBC 4.19 10x6/uL (4.20-6.10); RDW 13.6 % (11.5-14.5); WBC 11.5 10x3/uL (4.8-10.8)
[2018-04-25 08:19] LABS: ANION GAP 19.4 mmol/L (8-16); CALCIUM 9.2 mg/dL (8.5-10.1); CARBON DIOXIDE 25.6 mmol/L (21.0-32.0); CREATININE - SERUM 5.8 mg/dL (0.6-1.3)
[2018-04-25 08:35] LABS: APTT 28.7 SECONDS (22.8-39.4); INR 1.07 (0.85-1.17); PROTIME 13.5 SECONDS (11.6-15.0)
[2018-04-25] MEDS ORDERED: NORCO 10-325 TA1 TAB PO (09:28)
[2018-04-25] MEDS ORDERED: PREDNISONE10 MG PO (09:30)
[2018-04-25 09:41] VITALS: BP 151/84; BMI 30.6
[2018-04-25 17:55] VITALS: BP 150/83; BMI 30.6
[2018-04-25 20:11] VITALS: Ht 182.9 cm; Wt 102.3 kg
[2018-04-25 20:29] VITALS: BP 145/93
[2018-04-26 01:10] VITALS: BP 166/95
[2018-04-26 05:11] LABS: BASOPHILS 0.2 % (0-2); EOSINOPHILS 0.8 % (0-7); HEMATOCRIT 38.2 % (42.0-54.0); HEMOGLOBIN 13.1 g/dL (13.5-17.5); IMMATURE GRANULOCYTES 0.5 % (0-5); LYMPHOCYTES 5.5 % (15-50); MCH 32.5 pg (26.0-34.0); MCHC 34.3 g/dL (31.0-37.0); MCV 94.8 fL (80.0-100.0); MEAN PLATELET VOLUME 10.3 fL (7.4-10.4); PLATELET COUNT 172 10x3/uL (130-400); RBC 4.03 10x6/uL (4.20-6.10); RDW 13.6 % (11.5-14.5); WBC 13.1 10x3/uL (4.8-10.8)
[2018-04-26 05:36] LABS: ANION GAP 18.8 mmol/L (8-16); CALCIUM 8.9 mg/dL (8.5-10.1); CARBON DIOXIDE 21.5 mmol/L (21.0-32.0); POTASSIUM - SERUM 4.3 mmol/L (3.5-5.1)
[2018-04-26 05:50] LABS: PHOSPHOROUS 9.2 mg/dL (2.5-4.9)
[2018-04-26 06:10] VITALS: BP 172/89
[2018-04-26 06:18] VITALS: BP 179/106
[2018-04-26] MEDS ORDERED: NORCO 10-325 TA1 TAB PO (11:06)
== END 2018-04-26 16:24 | disposition home or self-care (01) ==
LOC: D.OPS 07:52 → D.M2 16:10 → D.OPS 04-26 16:24
PROVIDERS: Anesthesiology; Internal Medicine Nephrology
DX: T82.590A Other mechanical complication of surgically created arteriovenous fistula, initial encounter (principal); N18.6 End stage renal disease; Z99.2 Dependence on renal dialysis; Z01.812 Encounter for preprocedural laboratory examination

== ENCOUNTER 2018-08-29 13:13 | Observation (INO) | payer MEDICARE ==
[~2018-08-29] VITALS: Ht 182.9 cm; Wt 106.6 kg
[~2018-08-29 13:13] MED LIST changes: +NORCO 10-325 TA1 TAB PO
[2018-08-29 13:53] VITALS: BP 121/75; BMI 31.9
[2018-08-29 15:19] LABS: BASOPHILS 0.2 % (0-2); EOSINOPHILS 1.8 % (0-7); HEMATOCRIT 38.6 % (42.0-54.0); HEMOGLOBIN 13.2 g/dL (13.5-17.5); IMMATURE GRANULOCYTES 0.1 % (0-5); LYMPHOCYTES 12.7 % (15-50); MCH 31.4 pg (26.0-34.0); MCHC 34.2 g/dL (31.0-37.0); MCV 91.9 fL (80.0-100.0); MONOCYTES 8.5 % (2-11); NEUTROPHILS 76.7 % (40-80); PLATELET COUNT 176 10x3/uL (130-400); RDW 13.8 % (11.5-14.5); WBC 8.1 10x3/uL (4.8-10.8)
[2018-08-29 15:28] LABS: CALCIUM 8.6 mg/dL (8.5-10.1); CARBON DIOXIDE 23.8 mmol/L (21.0-32.0); CREATININE - SERUM 6.9 mg/dL (0.6-1.3); POTASSIUM - SERUM 3.8 mmol/L (3.5-5.1)
[2018-08-29 16:07] VITALS: Ht 182.9 cm; Wt 106.6 kg
--- NOTE | 2018-08-29 19:20 | NUR ---
INTRODUCED SELF TO PATIENT, PATIENT HAD FRIEND AT BEDSIDE. PATIENT WATCHING TV AND EATING PIZZA. RESP EVEN AND UNLABORED. NO S/SX OF PAIN AT THIS TIME. BED IN LOWEST POSITION, CALL LIGHT IN REACH.
[2018-08-29 20:00] VITALS: BP 150/76
[2018-08-30 04:00] VITALS: BP 105/69
--- NOTE | 2018-08-30 04:35 | NUR ---
ASSUMING CARE OF PT - RECIEVED REPORT OF COREY MORGAN. PT RESTING IN BED WITH EYES CLOSED. RR EVEN AND UL, NO S/S OF DISTRESS. VSS. WCTM AND FOLLOW POC. CL IN REACH, SR UP X2,BED IN LOWEST POSITION. NPO STATUS MAINTAINED.
[2018-08-30 05:41] LABS: BASOPHILS 0.4 % (0-2); EOSINOPHILS 2.4 % (0-7); HEMATOCRIT 39.1 % (42.0-54.0); HEMOGLOBIN 13.2 g/dL (13.5-17.5); IMMATURE GRANULOCYTES 0.4 % (0-5); LYMPHOCYTES 14.1 % (15-50); MCH 31.2 pg (26.0-34.0); MCHC 33.8 g/dL (31.0-37.0); MCV 92.4 fL (80.0-100.0); MEAN PLATELET VOLUME 11.2 fL (7.4-10.4); MONOCYTES 8.6 % (2-11); NEUTROPHILS 74.1 % (40-80); PLATELET COUNT 179 10x3/uL (130-400); RBC 4.23 10x6/uL (4.20-6.10); RDW 13.9 % (11.5-14.5); WBC 7.8 10x3/uL (4.8-10.8)
[2018-08-30 06:16] LABS: ANION GAP 21.9 mmol/L (8-16); CALCIUM 8.6 mg/dL (8.5-10.1); CARBON DIOXIDE 21.9 mmol/L (21.0-32.0); CREATININE - SERUM 7.4 mg/dL (0.6-1.3); POTASSIUM - SERUM 3.8 mmol/L (3.5-5.1)
--- NOTE | 2018-08-30 06:48 | NUR ---
RECIEVED CALL FROM OR AT 0610 TO PRE-OP PT. WAS TOLD BY OFF-GOING NURSE COREY MORGAN THAT PT DOES NOT HAVE IV BECAUSE "SURGERY IS SUPPOSED TO DO IT." MEDICATIONS DRAWN UP READY TO ADMINSTER, BUT COULD NOT GET IV ACCESS, X2 STICKS. WILL HAND OFF TO ONCOMING NURSE AND NOTIFY SURGERY.
--- NOTE | 2018-08-30 07:13 | NUR ---
NOTIFIED SURGERY ABOUT MEDS ALREADY BRINGING DRAWN UP AND THEY SAID TO LEAVE TRANFER MEDS LABELED WITH PT. LABELED SYRINGES AND LEFT MEDS AT BEDSIDE AND REPORTED TO COREY HEADLEY. WILL COMPLETE PRE-OP LIST PER COREY HEADLEY TO BEST OF MY ABILITY I RECIEVED PT AT 0430 THIS MORNING FROM COREY MORGAN.
--- NOTE | 2018-08-30 07:40 | NUR ---
0720-TO OR VIA BED.
--- NOTE | 2018-08-30 09:57 | NUR ---
0987-RETURNS FROM RECOVERY ROOM WITH SALINE LOCK PIV TO RIGHT AC. AT BEDSIDE. TWO SMALL DRESSINGS SEEN TO LEFT FA. + BRUIT AND THRILL. EATING BREAKFAST, DENIES NEEDS AT THIS TIME.
--- NOTE | 2018-08-30 10:16 | NUR ---
ROCKY TAB[facility] APN IN TO SEE PATIENT. INFORMED THEM THAT DIALYSIS WILL BE IN ABOUT THREE HOURS.
--- NOTE | 2018-08-30 10:41 | NUR ---
LAYING ON RIGHT SIDE RESTING. AROUSES EASILY. DENIES NEEDS. AT BEDSIDE.
[2018-08-30 11:52] VITALS: BP 138/72
--- NOTE | 2018-08-30 12:31 | NUR ---
STATES THAT HE IS NAUSEATED. NO ZOFRAN ON EMAR. PAGE INTO ROCKY [facility]OR APN FOR SOME.
--- NOTE | 2018-08-30 13:00 | MORECARE ---
CASE MANAGEMENT DISCHARGE SUMMARY PATIENT: DAYDAY LISA UNIT: [id number] ADM DATE: 08/29/18 AGE: 38 : [birth year] SEX: M ROOM/BED: D.2138 AUTHOR: HERMELINDA CHE PHYSICIAN: REFERRING PHYSICIAN: KOLBY HERNADEZ MD DATE OF SERVICE: 08/30/18 Discharge Plan Patient Name: DAYDAY LISA Facility: [facility]:[place] : 1980 Planned Disposition: Anticipated Discharge Date: Discharge Date: Expected LOS: Initial Reviewer: [id number] Initial Review Date: 08/29/2018 Generated: 08/30/18 2:00 pm Coverage Notice Reviewer: [id number] - Chelsie Tellez Notice Issued Date-Time: 08/30/2018 12:42 Notice Type: Medicare Outpatient Observation Notice Notice Delivered To: Patient Relationship to Patient: Self Weight Tester Name: Delivery Method: HAND - Hand Delivered Magnolia Days: Prior Verbal Notification: Recipient Understood Notice: Yes Recipient Signature: Yes Med Rec Note Co-signed by Attending: Coverage Notice Comment: MCKENNA DELIVERED AND DISCUSSED WITH PATIENT AND HIS , JAMILAH, AFTER VERBAL CONSENT OBTAINED. PATIENT HAD JUST RECEIVED SOME IV MEDICATION AND WAS UNABLE TO KEEP HEAD ERECT AND REQUESTED THAT HIS SIGN THE PAPERS. Patient Name: DAYDAY LISA Page [phone] at 1300 All edits/amendments must be made on the electronic document DICTATION DATE: 08/30/18 1300 INVESTMENT OFFICER: MICHELE 08/30/18 1300 RPT#: [id number] DC DATE: STATUS: ADM IN [facility] [address] [place] [address] END OF REPORT
--- NOTE | 2018-08-30 13:47 | NUR ---
TO DIALYSIS VIA BED.
--- NOTE | 2018-08-30 16:25 | NUR ---
STILL OFF THE FLOOR AT THIS ITME.
--- NOTE | 2018-08-30 16:49 | NUR ---
RETURNS FROM DIALYSIS, HAS SOME SLIGHT NAUSEA.
--- NOTE | 2018-08-30 17:39 | NUR ---
CALLED TO ROOM PER PATIENT HE IS STILL VERY NAUSEATED. PHENERGAN GIVEN. THERE ARE TWO DIALYSIS NEEDLES LAYING ON THE FLOOR NEXT TO BED. PATIENT STATES THAT HE FOUND THESE IN HIS BED POST DIALYSIS AND DROPPED THEM ONTO THE FLOOR. I ASKED INGRID BUCKNER RN UNIT MANAGER TO COME SEE THEM THEY LAID. PLACED IN BIO HAZARD BAG AFTER SHE SAW THEM AND PLACED THEM IN HER OFFICE.
--- NOTE | 2018-08-30 18:15 | NUR ---
PATIENT IS RESTING AT THIS TIME, APPEARS NAUSEA FREE. AT BEDSIDE. DISCHARGE PAPERWORK IS DONE, JUST WAITING ON PAIIENT TO FEEL BETTER FOR DISCHARGE.
--- NOTE | 2018-08-30 18:45 | NUR ---
CALLED TO ROOM FOR SALINE LOCK REMOVAL. REMOVED WITH CATH TIP INTACT. STATES THAT HE IS FEELING SOME BETTER.
--- NOTE | 2018-09-01 07:52 | MORECARE ---
CASE MANAGEMENT DISCHARGE SUMMARY PATIENT: DAYDAY LISA UNIT: [id number] ADM DATE: 08/29/18 AGE: 38 : [birth year] SEX: M ROOM/BED: D.213 AUTHOR: HERMELINDA CHE PHYSICIAN: REFERRING PHYSICIAN: KOLBY HERNADEZ MD DATE OF SERVICE: 09/01/18 Discharge Plan Patient Name: DAYDAY LISA Facility: [facility]:[place] : 1980 Planned Disposition: Home Anticipated Discharge Date: 08/30/18 Discharge Date: 08/30/2018 Expected LOS: 1 Initial Reviewer: [id number] Initial Review Date: 08/29/2018 Generated: 09/01/18 8:52 am Coverage Notice Reviewer: [id number] Mason Tellez Notice Issued Date-Time: 08/30/2018 12:42 Notice Type: Medicare Outpatient Observation Notice Notice Delivered To: Patient Relationship to Patient: Self Computational Chemist Name: Delivery Method: HAND - Hand Delivered Magnolia Days: Prior Verbal Notification: Recipient Understood Notice: Yes Recipient Signature: Yes Med Rec Note Co-signed by Attending: Coverage Notice Comment: MCKENNA DELIVERED AND DISCUSSED WITH PATIENT AND HIS , JAMILAH, AFTER VERBAL CONSENT OBTAINED. PATIENT HAD JUST RECEIVED SOME IV MEDICATION AND WAS UNABLE TO KEEP HEAD ERECT AND REQUESTED THAT HIS SIGN THE PAPERS. Last DP export: 08/30/18 12:00 p Patient Name: DAYDAY LISA Page [phone] at 0752 All edits/amendments must be made on the electronic document DICTATION DATE: 09/01/18 075 CURRICULUM CONSULTANT: MICHELE 09/01/18 0751 RPT#: [id number] DC DATE:08/30/18 STATUS: DIS IN [facility] [address] [place] [address] END OF REPORT
--- NOTE | 2018-09-14 09:41 | OP ---
PATIENT NAME: DAYDAY LISA MEDICAL RECORD: [id number] :[birth year] LOCATION:D.M2 D.2138 ADMISSION DATE:08/29/18 SURGEON: TONI SALAZAR MD DATE OF OPERATION: 08/30/2018 PREOPERATIVE DIAGNOSES: 1. Vascular wire embedded and left upper extremity fistula. 2. End-stage renal disease. POSTOPERATIVE DIAGNOSES: 1. Vascular wire embedded and left upper extremity fistula. 2. End-stage renal disease. PROCEDURE: 1. Removal of vascular wire and left upper extremity fistula. 2. Fistulogram with fluoroscopic interpretation. 3. Angioplasty with 4 x 40 millimeter angioplasty balloon. SURGEON: Toni Salazar MD REPORT OF PROCEDURE: The patient's left upper extremity was prepped and draped in sterile fashion. The patient had a suture in place on the left arm with a small amount of uncoiling wire present. Using fluoroscopy, we could see that the wire was imbedded in the tissue and appeared to be knotted up inside the vascular structure. We made a small cut down over top of this after we had infused a total of 5 mL of 1% lidocaine with epinephrine into the surrounding tissues. As we pulled the wire, the wire kept trying to break. Eventually the wire broke off at its entrance into the vessel. Using pressure, we stopped the flow of the fistula and made a small incision in the graft and was able to dig out the excess piece of wire material. Using fluoroscopic guidance, we were able to see that it was completely removed. We then sutured the longitudinal incision in the graft using running 7-0 Prolenes. This discontinued any bleeding from the incision site. We then performed a fistulogram by inserting a 22-gauge butterfly needle into the most distal bend of the graft. At this point, it showed there was not good flow through the vessel, it was more pulsatile with no evident thrill present. The flow appeared to be sluggish even though there did not appear to be any distinct sign of the clot present. There was a very small efferent venous access, which appeared to be the main contributor to the sluggish flow. Decision was made to angioplasty to this area. We inserted a micropuncture device followed by 5 sheath. Through this sheath, we were able to insert a 40 x 4 angioplasty balloon. We were able to dilate up this portion of the vessel all the way up to where we had performed our fistulotomy. At this point, we repeated the fistulogram and it showed there was good flow through the vessel, which had greatly improved and the area of stenosed vessel was markedly dilated. Again, there was no evidence of any clot present in the vessel. The patient had a palpable thrill at this point. We then removed and the catheter and the Glidewire and this was oversewn with a 5-0 Monocryl, which discontinued any bleeding. The skin incision was then closed with a running subcutaneous 5-0 Monocryl and the two areas were dressed appropriately. COMPLICATIONS: None. CONDITION: Stable. OPERATIVE REPORT [id number] DAYDAY LISA ANESTHESIA: Local MAC. BLOOD LOSS: 100 mL. TRANSINT:[id number] Voice Confirmation ID: [id number] DOCUMENT ID: [id number] TONI SALAZAR MD at 0941 CC: [id number] DICTATION DATE: 08/30/18 1531 FINANCIAL REPORTING ACCOUNTANT: 08/30/18 1658 DIS IN 08/30/18 [facility] [address] [place] [address]
== END 2018-08-30 20:43 | disposition home or self-care (01) ==
LOC: D.M2 13:13 → OBSVTIME 13:14 → D.M2 08-30 20:43
PROVIDERS: ADMIT Internal Medicine Nephrology
DX: T81.59 Other complications of foreign body accidentally left in body following procedure (principal); Y83.8 Other surgical procedures as the cause of abnormal reaction of the patient, or of later complication, without mention of misadventure at the time of the procedure; I12.0 Hypertensive chronic kidney disease with stage 5 chronic kidney disease or end stage renal disease; N18.6 End stage renal disease; E78.5 Hyperlipidemia, unspecified; M32.9 Systemic lupus erythematosus, unspecified; K21.9 Gastro-esophageal reflux disease without esophagitis; Z86.73 Personal history of transient ischemic attack (TIA), and cerebral infarction without residual deficits; F32.9 Major depressive disorder, single episode, unspecified; F41.9 Anxiety disorder, unspecified

== ENCOUNTER 2018-09-01 11:16 | Inpatient (IN) | payer MEDICARE ==
[~2018-09-01] VITALS: Ht 182.9 cm; Wt 105.0 kg
[2018-09-01 14:05] LABS: BASOPHILS 0.1 % (0-2); EOSINOPHILS 0.1 % (0-7); HEMATOCRIT 37.5 % (42.0-54.0); HEMOGLOBIN 13.1 g/dL (13.5-17.5); IMMATURE GRANULOCYTES 0.4 % (0-5); LYMPHOCYTES 3.2 % (15-50); MCH 31.6 pg (26.0-34.0); MCHC 34.9 g/dL (31.0-37.0); MCV 90.6 fL (80.0-100.0); MEAN PLATELET VOLUME 10.6 fL (7.4-10.4); MONOCYTES 2.5 % (2-11); NEUTROPHILS 93.7 % (40-80); PLATELET COUNT 169 10x3/uL (130-400); RBC 4.14 10x6/uL (4.20-6.10); RDW 13.6 % (11.5-14.5); WBC 13.4 10x3/uL (4.8-10.8)
[2018-09-01 14:18] LABS: APTT 28.2 SECONDS (22.8-39.4); INR 1.11 (0.85-1.17); PROTIME 13.8 SECONDS (11.6-15.0)
[2018-09-01 14:20] LABS: ALBUMIN 3.8 g/dL (3.4-5.0); ANION GAP 21.8 mmol/L (8-16); BILIRUBIN - TOTAL 0.3 mg/dL (0.2-1.3); CALCIUM 8.7 mg/dL (8.5-10.1); CARBON DIOXIDE 22.2 mmol/L (21.0-32.0); CREATININE - SERUM 8.5 mg/dL (0.6-1.3); PROTEIN - SERUM 6.7 g/dL (6.4-8.2)
[2018-09-01 20:00] VITALS: BP 149/88
[2018-09-01 22:10] VITALS: BP 149/88; BMI 31.2
[2018-09-02 00:30] VITALS: BP 164/87
[2018-09-02 04:00] VITALS: BP 153/87
[2018-09-02 07:15] LABS: BASOPHILS 0.1 % (0-2); EOSINOPHILS 0.1 % (0-7); IMMATURE GRANULOCYTES 0.4 % (0-5); LYMPHOCYTES 2.5 % (15-50); MCV 91.8 fL (80.0-100.0); MEAN PLATELET VOLUME 11.5 fL (7.4-10.4); MONOCYTES 9.2 % (2-11); NEUTROPHILS 87.7 % (40-80); PLATELET COUNT 169 10x3/uL (130-400); RDW 13.8 % (11.5-14.5); WBC 16.1 10x3/uL (4.8-10.8)
[2018-09-02 07:21] LABS: RBC 2.94 10x6/uL (4.20-6.10)
[2018-09-02 07:36] LABS: INR 1.18 (0.85-1.17); PROTIME 14.4 SECONDS (11.6-15.0)
[2018-09-02 07:49] VITALS: BP 150/77
[2018-09-02 14:19] VITALS: Ht 182.9 cm; Wt 105.0 kg
[2018-09-02 14:37] LABS: HEMOGLOBIN 10.6 g/dL (13.5-17.5)
[2018-09-02 16:03] VITALS: BP 131/80
[2018-09-02 17:13] LABS: ALBUMIN 3.2 g/dL (3.4-5.0); BILIRUBIN - DIRECT 0.05 mg/dL (0.00-0.30); BILIRUBIN - INDIRECT 1.17 mg/dL (0.00-1.00); BILIRUBIN - TOTAL 1.22 mg/dL (0.2-1.3); CALCIUM 8.4 mg/dL (8.5-10.1); CARBON DIOXIDE 22.5 mmol/L (21.0-32.0); CREATININE - SERUM 6.4 mg/dL (0.6-1.3); PROTEIN - SERUM 6.1 g/dL (6.4-8.2); VANCOMYCIN - RANDOM 0.5 ug/mL (10.0-20.0)
[2018-09-02 18:27] LABS: ANION GAP 19.2 mmol/L (8-16); POTASSIUM - SERUM 3.7 mmol/L (3.5-5.1)
[2018-09-02 19:55] VITALS: BP 172/95
[2018-09-02 23:55] VITALS: BP 152/93
[2018-09-03 03:56] VITALS: BP 139/93
[2018-09-03 08:28] VITALS: BP 175/97
[2018-09-03 09:41] LABS: BASOPHILS 0.1 % (0-2); EOSINOPHILS 0.8 % (0-7); HEMATOCRIT 29.2 % (42.0-54.0); IMMATURE GRANULOCYTES 0.7 % (0-5); LYMPHOCYTES 6.5 % (15-50); MCHC 34.9 g/dL (31.0-37.0); MCV 91.5 fL (80.0-100.0); MONOCYTES 10.5 % (2-11); NEUTROPHILS 81.4 % (40-80); PLATELET COUNT 168 10x3/uL (130-400); RBC 3.19 10x6/uL (4.20-6.10); RDW 14.1 % (11.5-14.5); WBC 14.4 10x3/uL (4.8-10.8)
[2018-09-03 09:42] LABS: HEMOGLOBIN 10.2 g/dL (13.5-17.5)
[2018-09-03 10:03] LABS: ALBUMIN 3.2 g/dL (3.4-5.0); ANION GAP 18.8 mmol/L (8-16); BILIRUBIN - DIRECT 0.14 mg/dL (0.00-0.30); BILIRUBIN - INDIRECT 0.6 mg/dL (0.00-1.00); BILIRUBIN - TOTAL 0.74 mg/dL (0.2-1.3); CALCIUM 8.7 mg/dL (8.5-10.1); CARBON DIOXIDE 23.5 mmol/L (21.0-32.0); CREATININE - SERUM 8.5 mg/dL (0.6-1.3); POTASSIUM - SERUM 3.3 mmol/L (3.5-5.1)
[2018-09-03 12:10] VITALS: BP 165/87
[2018-09-03 19:50] VITALS: BP 143/92
[2018-09-03 23:52] VITALS: BP 120/68
[2018-09-04 03:45] VITALS: BP 134/83
[2018-09-04 06:32] LABS: BASOPHILS 0.2 % (0-2); EOSINOPHILS 0.8 % (0-7); HEMATOCRIT 29.3 % (42.0-54.0); HEMOGLOBIN 10.2 g/dL (13.5-17.5); IMMATURE GRANULOCYTES 0.8 % (0-5); LYMPHOCYTES 6.3 % (15-50); MCH 31.8 pg (26.0-34.0); MCHC 34.8 g/dL (31.0-37.0); MCV 91.3 fL (80.0-100.0); MONOCYTES 10.5 % (2-11); NEUTROPHILS 81.4 % (40-80); PLATELET COUNT 176 10x3/uL (130-400); RBC 3.21 10x6/uL (4.20-6.10); RDW 14.1 % (11.5-14.5); WBC 12.9 10x3/uL (4.8-10.8)
[2018-09-04 06:53] LABS: ANION GAP 16.7 mmol/L (8-16); CALCIUM 8.4 mg/dL (8.5-10.1); CARBON DIOXIDE 26.2 mmol/L (21.0-32.0); CREATININE - SERUM 7.4 mg/dL (0.6-1.3); VANCOMYCIN - RANDOM 0.3 ug/mL (10.0-20.0)
[2018-09-04 07:25] LABS: POTASSIUM - SERUM 3.9 mmol/L (3.5-5.1)
[2018-09-04 08:19] LABS: APPEARANCE SL CLDY (CLEAR); COLOR YELLOW BROWN (YELLOW); SPECIFIC GRAVITY 1.005 (1.005-1.020)
[2018-09-04 08:20] LABS: BACTERIA MODERATE /hpf (NONE SEEN); BILIRUBIN NEGATIVE (NEGATIVE); EPITHELIAL CELLS RARE /hpf (0-5); GLUCOSE 50 mg/dL (NEGATIVE); KETONE NEGATIVE (NEGATIVE); MUCUS <1+ /lpf (NONE SEEN); NITRITE NEGATIVE (NEGATIVE); PROTEIN 3+ mg/dL (NEGATIVE); RED CELLS - URINE 0-5 /hpf (0-5); UROBILINOGEN NORMAL (NORMAL); WHITE CELLS - URINE 0-5 /hpf (0-5)
[2018-09-04 08:21] LABS: AMORPHOUS SEDIMENT <1+ /lpf (NONE SEEN)
[2018-09-04 08:44] VITALS: BP 141/88
[2018-09-04 12:02] VITALS: BP 143/90
[2018-09-04 16:01] VITALS: BP 138/82
[2018-09-04 21:03] VITALS: BP 147/79
[2018-09-05] VITALS (11 sets, daily range): BP systolic 122–153; BP diastolic 64–88
[2018-09-05 05:32] LABS: BASOPHILS 0.1 % (0-2); EOSINOPHILS 0.9 % (0-7); HEMATOCRIT 28.2 % (42.0-54.0); HEMOGLOBIN 9.5 g/dL (13.5-17.5); IMMATURE GRANULOCYTES 0.8 % (0-5); LYMPHOCYTES 10.2 % (15-50); MCH 31.6 pg (26.0-34.0); MCHC 33.7 g/dL (31.0-37.0); MEAN PLATELET VOLUME 11.2 fL (7.4-10.4); MONOCYTES 8.6 % (2-11); NEUTROPHILS 79.4 % (40-80); PLATELET COUNT 179 10x3/uL (130-400); RBC 3.01 10x6/uL (4.20-6.10); RDW 14.1 % (11.5-14.5); WBC 9.7 10x3/uL (4.8-10.8)
[2018-09-05 05:49] LABS: MCV 93.7 fL (80.0-100.0)
[2018-09-05 05:51] LABS: ANION GAP 15.4 mmol/L (8-16); CALCIUM 8.1 mg/dL (8.5-10.1); CARBON DIOXIDE 28.4 mmol/L (21.0-32.0); CREATININE - SERUM 8.3 mg/dL (0.6-1.3); POTASSIUM - SERUM 3.8 mmol/L (3.5-5.1); VANCOMYCIN - RANDOM 0.5 ug/mL (10.0-20.0)
[2018-09-05 09:35] LABS: APTT 32.9 SECONDS (22.8-39.4); INR 1.11 (0.85-1.17); PROTIME 13.8 SECONDS (11.6-15.0)
[2018-09-05 11:20] LABS: HAPTOGLOBIN <10 mg/dL (34-200)
[2018-09-05 11:20] LABS: HAPTOGLOBIN 18 mg/dL (34-200)
[2018-09-05 13:16] LABS: ERYTHROPOIETIN 4.2 mIU/mL (2.6-18.5)
[2018-09-06 05:21] LABS: BASOPHILS 0.2 % (0-2); EOSINOPHILS 1.6 % (0-7); HEMATOCRIT 25.7 % (42.0-54.0); HEMOGLOBIN 8.8 g/dL (13.5-17.5); IMMATURE GRANULOCYTES 0.7 % (0-5); LYMPHOCYTES 5.8 % (15-50); MCH 31.9 pg (26.0-34.0); MCHC 34.2 g/dL (31.0-37.0); MCV 93.1 fL (80.0-100.0); MEAN PLATELET VOLUME 10.9 fL (7.4-10.4); MONOCYTES 9.2 % (2-11); NEUTROPHILS 82.5 % (40-80); PLATELET COUNT 176 10x3/uL (130-400); RBC 2.76 10x6/uL (4.20-6.10); RDW 14.1 % (11.5-14.5); WBC 10.2 10x3/uL (4.8-10.8)
[2018-09-06 05:35] LABS: ANION GAP 20.8 mmol/L (8-16); CALCIUM 7.8 mg/dL (8.5-10.1); CREATININE - SERUM 9.7 mg/dL (0.6-1.3); POTASSIUM - SERUM 3.8 mmol/L (3.5-5.1)
[2018-09-06 05:48] VITALS: BP 142/85
[2018-09-06 08:07] VITALS: BP 144/72
[2018-09-06 15:22] LABS: HGB - A 97.6 % (96.4-98.8); HGB - A2 2.4 % (1.8-3.2); HGB - INTERPRETATION Note: (()); HGB - SOLUBILITY Negative (Negative)
[2018-09-06 15:33] VITALS: BP 136/64
[2018-09-06 22:04] VITALS: BP 134/77
[2018-09-07 01:17] VITALS: BP 144/84
[2018-09-07 06:15] VITALS: BP 144/91
[2018-09-07 06:15] LABS: LUPUS - INTERPRETATION Comment: (()); LUPUS - THROMBIN TIME 14.6 sec (0.0-23.0); LUPUS - dRVVT 50.5 sec (0.0-47.0); PTT-LA 33.8 sec (0.0-51.9)
[2018-09-07 06:41] LABS: ANION GAP 20.6 mmol/L (8-16); CALCIUM 8.6 mg/dL (8.5-10.1); CARBON DIOXIDE 23.5 mmol/L (21.0-32.0); CREATININE - SERUM 9.3 mg/dL (0.6-1.3); POTASSIUM - SERUM 4.1 mmol/L (3.5-5.1)
[2018-09-07 06:43] LABS: BASOPHILS 0.2 % (0-2); EOSINOPHILS 1.3 % (0-7); HEMATOCRIT 29.5 % (42.0-54.0); IMMATURE GRANULOCYTES 0.9 % (0-5); LYMPHOCYTES 9.7 % (15-50); MCH 31.6 pg (26.0-34.0); MCHC 33.9 g/dL (31.0-37.0); MCV 93.4 fL (80.0-100.0); MEAN PLATELET VOLUME 11.1 fL (7.4-10.4); MONOCYTES 7.7 % (2-11); NEUTROPHILS 80.2 % (40-80); RBC 3.16 10x6/uL (4.20-6.10); WBC 12.4 10x3/uL (4.8-10.8)
[2018-09-07 06:44] LABS: PLATELET COUNT 228 10x3/uL (130-400)
[2018-09-07 08:40] VITALS: BP 165/96
[2018-09-07] MEDS ORDERED: GABAPENTIN100 MG PO (10:00)
--- NOTE | 2018-09-07 12:31 | MORECARE ---
CASE MANAGEMENT DISCHARGE SUMMARY PATIENT: DAYDAY LISA UNIT: [id number] ADM DATE: 09/01/18 AGE: 38 : [birth year] SEX: M ROOM/BED: D.2140 AUTHOR: HERMELINDA CHE PHYSICIAN: REFERRING PHYSICIAN: KOLBY HERNADEZ MD DATE OF SERVICE: 09/07/18 Discharge Plan Patient Name: DAYDAY LISA Facility: [facility]:[place] : 1980 Planned Disposition: Home Anticipated Discharge Date: 09/07/18 Discharge Date: Expected LOS: 6 Initial Reviewer: [id number] Initial Review Date: 09/07/2018 Generated: 09/07/18 1:31 pm Coverage Notice Reviewer: [id number] - Leroy Liz Notice Issued Date-Time: 09/07/2018 9:45 Notice Type: IM Discharge Notice Notice Delivered To: Patient Relationship to Patient: Watch Dial Printer Name: Delivery Method: HAND - Hand Delivered Magnolia Days: Prior Verbal Notification: Recipient Understood Notice: Yes Recipient Signature: Yes Med Rec Note Co-signed by Attending: Coverage Notice Comment: Patient Name: DAYDAY LISA Page [phone] at 1231 All edits/amendments must be made on the electronic document DICTATION DATE: 09/07/18 1230 PLATING ENGINEER: MICHELE 09/07/18 1230 RPT#: [id number] DC DATE: STATUS: ADM IN [place] [address] [place] [address] END OF REPORT
--- NOTE | 2018-09-07 12:38 | MORECARE ---
CASE MANAGEMENT DISCHARGE SUMMARY PATIENT: DAYDAY LISA UNIT: [id number] ADM DATE: 09/01/18 AGE: 38 : [birth year] SEX: M ROOM/BED: D.2140 AUTHOR: HERMELINDA CHE PHYSICIAN: REFERRING PHYSICIAN: KOLBY HERNADEZ MD DATE OF SERVICE: 09/07/18 Discharge Plan Patient Name: DAYDAY LISA Facility: [facility]:[place] : 1980 Planned Disposition: Home Anticipated Discharge Date: 09/07/18 Discharge Date: Expected LOS: 6 Initial Reviewer: [id number] Initial Review Date: 09/07/2018 Generated: 09/07/18 1:38 pm DCPIA - Discharge Planning Initial Assessment Updated by HUONG: Leroy Liz on 09/07/18 12:34 pm * Is the patient Alert and Oriented? Yes * How many steps to enter\exit or inside your home? NONE * PCP DR. DEL RIO IN [place] RENAL DOCTOR: DR. ROWLEY * Pharmacy [facility] IN [place] * Preadmission Environment Home with Family * ADLs Independent * Equipment Cane Walker * Other Equipment NOT USING WALKER, RARELY USES CANE NO MEDICAL EQUIPMENT PROVIDER PREFERENCE * List name and contact numbers for known caregivers / representatives who currently or will assist patient after discharge: JAMILAH LISA, SPOUSE, * Verbal permission to speak to the caregivers and representatives has been obtained from the patient. Yes * Community resources currently utilized Other * Please name any agencies selected above. [facility]IENT [facility]IAL[facility], [place], MWF, 1000AM, PT DRIVES SELF * Additional services required to return to the preadmission environment? No * Can the patient safely return to the preadmission environment? Yes * Has this patient been hospitalized within the prior 30 days at any hospital? No Coverage Notice Reviewer: [id number] - Leroy Liz Notice Issued Date-Time: 09/07/2018 9:45 Notice Type: IM Discharge Notice Notice Delivered To: Patient Relationship to Patient: Underwater Photographer Name: Delivery Method: HAND - Hand Delivered Magnolia Days: Prior Verbal Notification: Recipient Understood Notice: Yes Recipient Signature: Yes Med Rec Note Co-signed by Attending: Coverage Notice Comment: Last DP export: 2/21/19 11:31 a Patient Name: DAYDAY LISA Page [phone] at 1238 All edits/amendments must be made on the electronic document DICTATION DATE: 09/07/181237 SHOP TEACHER: MICHELE 09/07/18 1238 RPT#: [id number] DC DATE: STATUS: ADM IN [facility] [address] [place] [address] END OF REPORT
--- NOTE | 2018-09-07 12:52 | MORECARE ---
CASE MANAGEMENT DISCHARGE SUMMARY PATIENT: DAYDAY LISA UNIT: [id number] ADM DATE: 09/01/18 AGE: 38 : [birth year] SEX: M ROOM/BED: D.2140 AUTHOR: HERMELINDA CHE PHYSICIAN: REFERRING PHYSICIAN: KOLBY HERNADEZ MD DATE OF SERVICE: 09/07/18 Discharge Plan Patient Name: DAYDAY LISA Facility: [facility]:[place] : 1980 Planned Disposition: Home Anticipated Discharge Date: 09/07/18 Discharge Date: Expected LOS: 6 Initial Reviewer: [id number] Initial Review Date: 09/07/2018 Generated: 09/07/18 1:52 pm Comments DCP- Discharge Planning Updated by [email or web address]: Leroy Liz on 09/07/18 11:[address] Patient Name: DAYDAY LISA Admission Status: ER Accout number: [id number] Admission Date: 09-01-2018 : 1980 Admission Diagnosis:STENOSIS OF OTHER VASCULAR PROSTH DEV/GRFT, INIT Attending: KOLBY HERNADEZ Current LOS: 6 Anticipated DC Date: 09-07-2018 Planned Disposition: Home Primary Insurance: MEDICARE A & B Discharge Planning Comments: CM RECEIVED NURSING MESSAGE FOR DISCHARGE PLANNING. CM MET WITH PT AND SPOUSE IN ROOM TO DISCUSS DISCHARGE PLANNING AND NEEDS. DAYDAY LISA provided verbal consent to discuss current and ongoing needs with/in the presence of: SPOUSE, JAMILAH. PT REPORTS LIVING AT HOME INDEPENDENTLY WITH SPUOSE. PT HAS WALKER HE DOES NOT USE AND A CANE HE RARELY USES WITH NO MEDICAL EQUIPMENT PROVIDER PREFERENCE. PT HAS NO OUTSIDE SERVICES ASSISTING IN THE HOME. PT DRIVES HIMSELF TO AND FROM DIALYSIS IN [place] ON MWF 1000AM SCHEDULE. CM DISCUSSED AVAILABILITY OF HOME HEALTH, REHAB SERVICES AND MEDICAL EQUIPMENT. PT DENIES DISCHARGE NEEDS, REPORTS HIS WILL PICK HIM UP TODAY FOR DISCHARGE HOME. IMPORTANT MESSAGE FROM MEDICARE PROVIDED AND EXPLAINED. TRAINING AND DEVELOPMENT REP NURSE NOTIFIED. Senior Administrator Support: Leroy Liz DCPIA - Discharge Planning Initial Assessment Updated by [id number]: Leroy Liz on 09/07/18 12:34 pm * Is the patient Alert and Oriented? Yes * How many steps to enter\exit or inside your home? NONE * PCP DR. DEL RIO IN [place] RENAL DOCTOR: DR. ROWLEY * Pharmacy [facility] IN [place] * Preadmission Environment Home with Family * ADLs Independent * Equipment Cane Walker * Other Equipment NOT USING WALKER, RARELY USES CANE NO MEDICAL EQUIPMENT PROVIDER PREFERENCE * List name and contact numbers for known caregivers / representatives who currently or will assist patient after discharge: JAMILAH LISA, SPOUSE, * Verbal permission to speak to the caregivers and representatives has been obtained from the patient. Yes * Community resources currently utilized Other * Please name any agencies selected above. [facility]PATIENT DIALYSIS, [place], MWF, 1000AM, PT DRIVES SELF * Additional services required to return to the preadmission environment? No * Can the patient safely return to the preadmission environment? Yes * Has this patient been hospitalized within the prior 30 days at any hospital? No Coverage Notice Reviewer: [id number] Mason Liz Notice Issued Date-Time: 09/07/2018 9:45 Notice Type: IM Discharge Notice Notice Delivered To: Patient Relationship to Patient: Doula Name: Delivery Method: HAND - Hand Delivered Magnolia Days: Prior Verbal Notification: Recipient Understood Notice: Yes Recipient Signature: Yes Med Rec Note Co-signed by Attending: Coverage Notice Comment: Last DP export: 09/07/18 11:38 a Patient Name: DAYDAY LISA Page [phone] at 1252 All edits/amendments must be made on the electronic document DICTATION DATE: 09/07/18 1252 FRUIT STUFFER: MICHELE 09/07/18 1252 RPT#: [id number] DC DATE: STATUS: ADM IN [facility] [address] [place] [address] END OF REPORT
[2018-09-07 13:13] LABS: G-6-PD - QUANT 378 (146-376); G-6-PD - RBC 2.99 x10E6/uL (4.14-5.80)
[2018-09-07 13:13] LABS: G-6-PD - QUANT 353 (146-376); G-6-PD - RBC 3.28 x10E6/uL (4.14-5.80)
[2018-09-08 07:31] LABS: HEPATITIS C ANTIBODY <0.1 S/CO RAT (0.0-0.9)
[2018-09-09 07:21] LABS: HEPATITIS BE ANTIGEN Negative (Negative)
[2018-09-12 06:14] LABS: HEPATITIS BE ANTIBODY Negative (Negative)
--- NOTE | 2018-09-14 09:41 | OP ---
PATIENT NAME: DAYDAY LISA MEDICAL RECORD: [id number] :82 LOCATION:D.M2 D.2140 ADMISSION DATE:09/01/18 SURGEON: TONI SALAZAR MD DATE OF OPERATION: 09/01/2018 PREOPERATIVE DIAGNOSES: 1. Left upper extremity clotted arteriovenous graft. 2. End-stage renal disease. POSTOPERATIVE DIAGNOSES: 1. Left upper extremity clotted arteriovenous graft. 2. End-stage renal disease. PROCEDURES: 1. Left upper extremity fistulogram. 2. AngioJet thrombectomy. 3. Angioplasty with a 5 x 40 mm balloon times 2. SURGEON: Toni Salazar MD REPORT OF PROCEDURE: The patient's left upper extremity was prepped and draped in sterile fashion. We placed an antegrade sheath in the left distal forearm. This was done using an introducer needle followed by a small wire. Over this wire, we were able to place a small dilator and followed by another larger wire. Over this larger wire, we were able to place the 6-Belarusian sheath. With the sheath in place, a fistulogram was performed. Contrast flowed into the graft, but did not go anywhere past the forearm. We then inserted a 0.035 Glidewire and we were able to pass this through the patient's graft up to its anastomosis in the axillary vein. Over this, we performed an AngioJet thrombectomy. At the conclusion of this, we had some marginal flow through the vessel. We then performed a retrograde sheath in the proximal aspect of the forearm graft. This retrograde sheath was placed using a micropuncture device again with a small needle followed by the wire, followed by the dilator, followed by the larger wire and then a 6-Belarusian sheath. With this 6-Belarusian sheath, we were able to pass another 0.035 Glidewire. They were able to pass this through the arterial anastomosis. The AngioJet was inserted and we ran it through this afferent limb of the AV graft. At the conclusion of this, we had some decent flow, but whenever we would remove the wire, the flow would stop through the arterial anastomosis. I never could get a good view of what was happening at the arterial anastomosis, but I assume there was a stricture. The 0.035 Glidewire was again advanced through the arterial anastomosis with the graft and 5 x 40-mm balloon was inserted. This was insufflated on 3 separate portions of the arterial anastomosis and at the conclusion of this we had good flow into the AV graft. We still had some clot present in the distal aspect of the graft as it proceeded up the upper arm. We ran the AngioJet few more times and cleared out the clot that was present. A fistulogram was performed and it showed good brisk flow through the graft up to an area in the mid upper arm. At this point, there appeared to be some stricturing of the vein, I passed the 5 x 40 angioplasty balloon up to this portion of the mid upper arm and performed a dilation of this portion of the vein. At the conclusion of this, we had even better flow through the vessel. We could feel a palpable thrill through the vessel up to the patient's left axilla all the way down to the antecubital space where the anastomosis was present. We could feel a good palpable pulse through the AV graft and followup fistulogram showed no evidence of any clot present throughout the graft. At this point, the sheaths were removed and were oversewn with OPERATIVE REPORT [id number] DAYDAY LISA [id number] 5-0 Monocryl until there was no bleeding present. The patient continued to have good palpable thrill through the vessel at the conclusion of the case. COMPLICATIONS: None. CONDITION: Stable. ANESTHESIA: General endotracheal. BLOOD LOSS: 100 mL. TRANSINT:[id number] Voice Confirmation ID: [id number] DOCUMENT ID: [id number] TONI SALAZAR MD at 0941 CC: KATELYNN WILSON MD [id number] DICTATION DATE: 09/01/18 174 AGRONOMIST: 09/02/18 0108 DIS IN 09/07/18 [facility] [address] [place] [address]
== END 2018-09-07 13:05 | disposition home or self-care (01) | DRG 252 ==
LOC: D.ER 11:16 → D.M2 13:07 → D.EDHOLD 13:07 → D.SDCHOLD 16:43 → D.M2 18:17
PROVIDERS: Family Medicine; Internal Medicine Hematology & Oncology; Radiology Diagnostic Radiology; Surgery; ADMIT Internal Medicine Nephrology
PROC: B51W1ZZ Fluoroscopy of Dialysis Shunt/Fistula using Low Osmolar Contrast (ICD-10-PCS; 2018-09-01)
PROC: 05C83ZZ Extirpation of Matter from Left Axillary Vein, Percutaneous Approach (ICD-10-PCS; principal; 2018-09-01 16:00)
PROC: 037Y3ZZ Dilation of Upper Artery, Percutaneous Approach (ICD-10-PCS; 2018-09-01 16:00)
PROC: 5A1D70Z Performance of Urinary Filtration, Intermittent, Less than 6 Hours Per Day (ICD-10-PCS; 2018-09-02)
PROC: 07DR3ZX Extraction of Iliac Bone Marrow, Percutaneous Approach, Diagnostic (ICD-10-PCS; 2018-09-05)
DX: T82.858A Stenosis of other vascular prosthetic devices, implants and grafts, initial encounter (principal); N18.6 End stage renal disease; I12.0 Hypertensive chronic kidney disease with stage 5 chronic kidney disease or end stage renal disease; D58.9 Hereditary hemolytic anemia, unspecified; N20.1 Calculus of ureter; Y83.8 Other surgical procedures as the cause of abnormal reaction of the patient, or of later complication, without mention of misadventure at the time of the procedure; Z99.2 Dependence on renal dialysis; E78.5 Hyperlipidemia, unspecified; K21.9 Gastro-esophageal reflux disease without esophagitis; F32.9 Major depressive disorder, single episode, unspecified; F41.9 Anxiety disorder, unspecified; M32.14 Glomerular disease in systemic lupus erythematosus; Z86.73 Personal history of transient ischemic attack (TIA), and cerebral infarction without residual deficits; Z87.891 Personal history of nicotine dependence

== ENCOUNTER 2019-02-28 12:14 | Emergency (ER) | payer MEDICARE ==
[~2019-02-28] VITALS: Ht 182.9 cm; Wt 106.8 kg
[~2019-02-28 12:14] MED LIST changes: +GABAPENTIN100 MG PO
[2019-02-28 12:29] VITALS: Ht 182.9 cm; Wt 106.8 kg
[2019-02-28 13:51] LABS: APPEARANCE CLEAR (CLEAR); BACTERIA FEW /hpf (NONE SEEN); BILIRUBIN NEGATIVE (NEGATIVE); COLOR YELLOW (YELLOW); EPITHELIAL CELLS 0-5 /hpf (0-5); GLUCOSE 50 mg/dL (NEGATIVE); KETONE NEGATIVE (NEGATIVE); NITRITE NEGATIVE (NEGATIVE); PROTEIN 1+ mg/dL (NEGATIVE); RED CELLS - URINE 0-5 /hpf (0-5); SPECIFIC GRAVITY 1.015 (1.005-1.020); UROBILINOGEN NORMAL (NORMAL); WHITE CELLS - URINE OCC /hpf (0-5)
[2019-02-28 14:03] LABS: BASOPHILS 0.1 % (0-2); EOSINOPHILS 0.7 % (0-7); HEMATOCRIT 35.9 % (42.0-54.0); HEMOGLOBIN 12.2 g/dL (13.5-17.5); IMMATURE GRANULOCYTES 0.4 % (0-5); LYMPHOCYTES 2.9 % (15-50); MCH 31.8 pg (26.0-34.0); MCV 93.5 fL (80.0-100.0); MEAN PLATELET VOLUME 10.8 fL (7.4-10.4); MONOCYTES 8.7 % (2-11); NEUTROPHILS 87.2 % (40-80); PLATELET COUNT 192 10x3/uL (130-400); RBC 3.84 10x6/uL (4.20-6.10); RDW 14.4 % (11.5-14.5); WBC 14.3 10x3/uL (4.8-10.8)
[2019-02-28 14:15] LABS: ALBUMIN 3.5 g/dL (3.4-5.0); ANION GAP 22.4 mmol/L (8-16); CALCIUM 9.3 mg/dL (8.5-10.1); CARBON DIOXIDE 20.7 mmol/L (21.0-32.0); CREATININE - SERUM 11.3 mg/dL (0.6-1.3); POTASSIUM - SERUM 5.1 mmol/L (3.5-5.1); PROTEIN - SERUM 6.7 g/dL (6.4-8.2)
[2019-02-28 14:26] LABS: BILIRUBIN - TOTAL 0.41 mg/dL (0.2-1.3)
[2019-02-28 17:12] VITALS: BP 118/62
== END 2019-02-28 18:14 | disposition home or self-care (01) ==
LOC: D.ER 12:14
PROVIDERS: Emergency Medicine
DX: R10.31 Right lower quadrant pain (principal); I12.0 Hypertensive chronic kidney disease with stage 5 chronic kidney disease or end stage renal disease; N18.6 End stage renal disease; N20.1 Calculus of ureter

== ENCOUNTER 2019-07-13 09:29 | Day surgery (SDC) | payer MEDICARE ==
[~2019-07-13] VITALS: Ht 182.9 cm; Wt 109.3 kg
[2019-07-13 10:05] LABS: CALC OSMOLALITY 290 mosm/kg (275-300); CALCIUM 9.2 mg/dL (8.5-10.1); CARBON DIOXIDE 21.7 mmol/L (21.0-32.0); CHLORIDE - SERUM 103 mmol/L (98-107); CREATININE - SERUM 0.6 mg/dL (0.6-1.3); GLUCOSE 90 mg/dL (74-106); POTASSIUM - SERUM 5.4 mmol/L (3.5-5.1); SODIUM 139 mmol/L (136-145); UREA NITROGEN 48 mg/dL (7-18); eGFR NON AFRICAN AMERICAN > 90 mL/min (90-120)
[2019-07-13 10:09] LABS: BASOPHILS 0.3 % (0-2); EOSINOPHILS 0.9 % (0-7); HEMATOCRIT 46.2 % (42.0-54.0); HEMOGLOBIN 15.3 g/dL (13.5-17.5); IMMATURE GRANULOCYTES 0.5 % (0-5); LYMPHOCYTES 5.7 % (15-50); MCH 32.5 pg (26.0-34.0); MCHC 33.1 g/dL (31.0-37.0); MCV 98.1 fL (80.0-100.0); MEAN PLATELET VOLUME 10.8 fL (7.4-10.4); MONOCYTES 10.1 % (2-11); NEUTROPHILS 82.5 % (40-80); PLATELET COUNT 185 10x3/uL (130-400); RBC 4.71 10x6/uL (4.20-6.10); RDW 14.2 % (11.5-14.5); WBC 11.2 10x3/uL (4.8-10.8)
[2019-07-13 10:11] LABS: APTT 28.9 SECONDS (22.8-39.4); INR 1.12 (0.85-1.17); PROTIME 13.9 SECONDS (11.6-15.0)
[2019-07-13] MEDS ORDERED: PHOSLO667 MG PO (12:09)
[2019-07-13 12:28] VITALS: Ht 182.9 cm; Wt 109.3 kg
--- NOTE | 2019-07-13 17:40 | NUR ---
PATIENT AMBULATING AROUND ROOM WITHOUT UNSTEADINESS OR DIZZINESS, PIV DC'D WITH TIP INTACT. DISCHARGE INSTRUCTIONS REVIEWED WITH PATIENT AND SPOUSE, DISCHARGED HOME VIA WHEELCHAIR TO PRIVATE VEHICLE WITH SPOUSE
--- NOTE | 2019-07-16 13:58 | OP ---
PATIENT NAME: DAYDAY LISA MEDICAL RECORD: [id number] :82 LOCATION:[facility] ADMISSION DATE: SURGEON: INDIA BARAHONA MD DATE OF OPERATION: 07/13/2019 PREOPERATIVE DIAGNOSIS: Infected left forearm wound. POSTOPERATIVE DIAGNOSIS: Infected left forearm graft material (old graft material not being utilized for hemodialysis access). PROCEDURE: Excisional debridement of left forearm with removal of foreign body. SURGEON: India Barahona MD CV/CVN CV TSC SYSTEM OPERATOR: None. BLOOD LOSS: Minimal. ANESTHESIA: General. COMPLICATIONS: None. The risks, possible complications, and alternatives to the procedure were explained to the patient. He elects to proceed. The discussion specifically included, but was not limited to, bleeding requiring emergency operation, infection, nerve injury, vascular injury. OPERATIVE COURSE: The patient was conveyed to the operating room electively on 07/13/2019. General anesthesia was induced by anesthesia staff. The patient's left upper extremity was abducted at 90 degrees to the patient's trunk. Through the use of double curvilinear incisions, I incised the skin and subcutaneous tissue overlying the draining wound. Dimensions of the debridement, including margins, measured 2.4 x 1.9 cm included skin and subcutaneous tissue as well as the draining wound. I followed this draining wound down to a piece of graft material. I performed a subcutaneous dissection and identified that the graft material went proximally on the volar surface of the medial aspect of the left arm. I extended my incision proximally. The graft material was quite lengthy. I then continued my dissection until I felt that further dissection might lead to a vascular injury. I then transected the vascular material at this site. I irrigated with normal saline and aspirated. The skin was closed with interrupted 3-0 Vicryls for the subcutaneous tissues as well as multiple interrupted horizontal mattress 2-0 Vicryls for the skin. A sterile dressing was applied. The patient was then extubated and conveyed to post-anesthesia care unit where he was in stable condition. He had good range of motion in flexion and extension of the left wrist. Good flexion and extension of the fingers of the left hand. No areas of numbness or paresthesias distal to the site of the incision. TRANSINT:[id number] Voice Confirmation ID: [id number] DOCUMENT ID: [id number] OPERATIVE REPORT [id number] MARIA LDAYDAY INDIA HUFF MD at 1358 CC: [id number] DICTATION DATE: 07/13/19 180 CUPROUS CHLORIDE HELPER: 07/14/19 0311 [facility] 07/13/19 [id number] [place] [address]
== END 2019-07-13 17:04 | disposition home or self-care (01) ==
LOC: D.OPS 09:29 → D.PAN 12:00 → D.OPS 17:04
PROVIDERS: Anesthesiology; ATTEND Surgery
DX: S51.802A Unspecified open wound of left forearm, initial encounter (principal); X58.XXXA Exposure to other specified factors, initial encounter; Z87.821 Personal history of retained foreign body fully removed; N18.6 End stage renal disease; Z72.0 Tobacco use